=== PATIENT | female | born 1980 | race Caucasian/White ===

== ENCOUNTER 2024-12-12 20:00 | Outpatient (OUT) | payer OTHER, SELFPAY ==
--- OUTSIDE RECORDS SUMMARY | 2024-05-25 10:14 | XMS_ITS | Continuity of Care Document ---
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 Name Role Phone Win Rae MD Unavailable Unavailable Allergies, Adverse Reactions, Alerts Substance Reaction Status Criticality trimethoprim Rash Active No Information sulfamethoxazole Rash Active No Informat ion Penicillins Unknown Active No Information Medications Medication Instructions Dosage Effective Dates (start - stop) Status Comments 1.5/30 (28) 1.5 mg-30 mcg (21)/75 mg (7) tablet take 1 tablet by oral route every day 1.00 tablet - Active Problems Condition Type Effective Dates (start - stop) Clini lashanda Status Comments No Known Problems Procedures Procedure Date Cytopath Cerv/vag Thin Prep; R Preven Meds E&m Estab Pt; 025 Mammo Add Bilateral Tomosynthesis 3D Apr Mammo Screening Bilateral Cytopath Cerv/vag Thin Prep; R Preven Meds E&m Estab Pt; 024 Mammo Add Bilateral Tomosynthesis 3D Apr Mammo Screening Bilateral Ua Dip Stik/tablt;wo Micro Non 23 Estab - Low (20-29) Mammo Add Bilateral Tomosynthesis 3D Apr Mammo Screening Bilateral Cytopath Cerv/vag Thin Prep; R 23 Preven Meds E&m Estab Pt; 40-64 023 Cytopath Cerv/vag Thin Prep; R 21 Preven Meds E&m Estab Pt; 021 Immuniz Admin; 1/combo Vacc/to 21 FLU VAC 4 (Single Dose) NO PRSV 4 ANGUS 3 YRS+ Estab - Moderate (30-39) Echo Transvaginal Offic/outpt E&m Estab Mod-hi 2 20 Cytopath Cerv/vag Thin Prep; R 20 Preven Meds E&m Estab Pt; 020 Echo Transvaginal Offic/outpt E&m Estab Mod-hi 2 19 Cytopath Cerv/vag Thin Prep; R 19 Preven Meds E&m Estab Pt; 019 Offic/outpt E&m Estab Low-mod 9 Cytopath Cerv/vag Thin Prep; R 18 Preven Meds E&m Estab Pt; 018 Cytopath Cerv/vag Thin Prep; R 17 Preven Meds E&m Estab Pt; 017 Offic/outpt E&m Estab Low-mod 6 Offic/outpt E&m Estab Low-mod 6 Cytopath Cerv/vag Thin Prep; R 16 Remov Intrauterine Device Preven Meds E&m Estab Pt; [address]; Hg/pltlt Ct Auto/compl Routine Venipunct/finger/heel 5 Echo Transvaginal Offic/outpt E&m Estab Low-mod 5 KGA Agt-dna/rna; Chlamydia Trach-a [facility] Agt-dna/rna; Neisser Gonorrhea Cytopath Cerv/vag Thin Prep; R 15 Preven Meds E&m Estab Pt; 015 Preven Meds E&m Estab Pt; 014 Cytopath Cerv/vag Thin Prep; R 14 Echo Transvaginal KGA Agt-dna/rna; Chlamydia Trach-a [facility] Agt-dna/rna; Neisser Gonorrhea Echo Transvaginal Offic/outpt E&m Estab Low-mod 3 Cytopath Cerv/vag Thin Prep; R 13 Preven Meds E&m Estab Pt; 013 Cytopath Cerv/vag Thin Prep; R 12 Preven Meds E&m Estab Pt; 012 Offic/outpt E&m Estab Low-mod 2 Offic/outpt E&m Estab Low-mod 2 Offic/outpt E&m Estab Low-mod 1 Void Encounter Offic/outpt E&m Estab Mod-hi 2 11 Echo Transvaginal Offic/outpt E&m Estab Low-mod 1 Offic/outpt E&m Estab Low-mod 1 KGA Cult Bacterial Definit; Other Offic/outpt E&m Estab Low-mod 1 Offic/outpt E&m Estab Low-mod 1 Echo Transvaginal Smear Prim W/intrpt; Wet Mnt W 11 Insrt Intrauterine Device Levonorgestrel Iu Contracept Insrt Intrauterine Device Urin Pg Test Visual Color Comp 11 Routine Ob Care Incl Vag Del C Section, No NICU Admission, No Induction, No Pp Care Only (separt Proc) Cytopath Cerv/vag Thin Prep; R 11 KGA Cult Bacterial Urin; Dennis [place] [facility] Sensit Antibiot; Disk Method/p Offic/outpt E&m Estab Low-mod 1 Non-stress Test Offic/outpt E&m Estab 5 Min Regular Ob Visit Regular Ob Visit Regular Ob Visit Rtu Pg Utrus W/imag Doc Transv 11 KGA Cult Bact Screen Only Sngl Org Regular Ob Visit Kga Transferase; Aspartate Amino 2010 Kga Transferase; Alanine Amino 11 Kga Urea Nitro; Dennis [facility] Creatinine; Bld [facility] Uric Acid; Bld KGA Prothrombin Time KGA P T T; Plasma/whole Bld [facility] Bld Ct; Hg/pltlt Ct Auto/compl Routine Venipunct/finger/heel 1 Non-stress Test Offic/outpt E&m Estab 5 Min Regular Ob Visit Regular Ob Visit Regular Ob Visit Regular Ob Visit [facility] Bld Ct; Hg/pltlt Ct Auto/compl Kga Glu; Post Glu Dose Routine Venipunct/finger/heel 1 Offic/outpt E&m Estab 5 Min Echo Pg Uterus B-scan; Complt 0 Kga Alpha-fetoprotein; Serum Routine Venipunct/finger/heel 0 Regular Ob Visit Flu Vir Vacc-split 3 Yr & > Im 10 Immuniz Admin; 1/combo Vacc/to 10 Regular Ob Visit Patient Responsibility Patient Responsibility Ag-nucleic Acid Mx Org; Dir Pr 10 Rtu Pg Utrus W/imag Doc Transv 10 Estab Pt Ob Visit25 Minutes Kga Thyroid Stim Hormone KGA Cult Bacterial Urin; Dennis [place] Routine Venipunct/finger/heel 0 Offic/outpt E&m Estab 5 Min Kga Ob Panel KGA Antib; Hiv-1 Kga Gonadotropin Chorionic; Dennis 2009 Routine Venipunct/finger/heel 0 Rtu Pg Utrus W/imag Doc Transv 10 Offic/outpt E&m Estab Low-mod 0 Echo Transvaginal Tx Missed Ab Compl Surg; 1st T 10 Readmitted Within 72 Hours For Same Prob celina, No DVT Protocol Compliance, Yes Antibiotic Protocol, Yes Rtu Pg Utrus W/imag Doc Transv 10 Kga Gonadotropin Chorionic; Dennis 2009 Routine Venipunct/finger/heel 0 Kga Gonadotropin Chorionic; Dennis 2009 Routine Venipunct/finger/heel 0 Postop F/u Visit Incld Global 0 Postoperative Infection, No Lap Surg; W/fulg/excis Les-ova 10 Offic/outpt E&m Estab Mod-hi 2 10 Colposcopy; W/bx-cerv &/or End 10 Offic/outpt E&m Estab Mod-hi 2 10 Offic/outpt E&m Estab Mod-hi 2 10 Echo Transvaginal Offic/outpt E&m Estab Low-mod 0 Offic/outpt E&m Estab Mod-hi 2 10 Routine Venipunct/finger/heel 0 Kga Gonadotropin Chorionic; Dennis 2009 Kga Gonadotropin Chorionic; Qual 2009 Routine Venipunct/finger/heel 0 Preven Meds E&m Estab Pt; 18-3 09 Cytopath Cerv/vag Thin Prep; R 09 Preven Meds E&m Estab Pt; 18-3 08 Cytopath Cerv/vag Thin Prep; R 08 Ag-nucleic Acid Mx Org; Dir Pr 08 Offic/outpt E&m Estab Low-mod 8 Smear Prim W/intrpt; Wet Mnt W 08 KGA Cult Bacterial Definit; Other Offic/outpt E&m Estab Low-mod 8 Ph Body Fluid Ex Bld Smear Prim W/intrpt; Wet Mnt W 08 KGA Cult Bacterial Definit; Other Offic/outpt E&m Estab Low-mod 8 Ph Body Fluid Ex Bld Smear Prim W/intrpt; Wet Mnt W 08 Offic/outpt E&m Estab Low-mod 8 Ph Body Fluid Ex Bld Smear Prim W/intrpt; Wet Mnt W 08 Urin Pg Test Visual Color Comp 08 Preven Meds E&m Estab Pt; 18-3 07 Preven Meds E&m Estab Pt; 18-3 07 Cytopath Cerv/vag Thin Prep; R 07 Pp Care Only (separt Proc) Routine Ob Care Incl Vag Del Regular Ob Visit Rho D Ig Human 1 Dose Pkg rtu pg utrus fetl gómez ab rtu pg utrus 1 tri abd; cytopath cerv/vag thin pr rtu pg utrus 1 tri abd; Preven Med Counsl (sep Pr Advance Directives Directive Yes / No Effective Date File Name No Information Encounters Encounter Description Practice Location Reason(s) For Visit Diagnoses Date Provider Providers Copied on Encounter [facility], [address], [place], [place], [id number], [place] tel:[phone] BARRY Christianson No Information 5 Kyra Walden. [address] [place] [address], [id number], [place]. tel:[phone] Preven Meds E&m Estab Pt; 4064 [facility], [address], [place], [place], [id number], [place] tel:[phone] JAKEBelen Quintero [facility] Block [employer]immer annual exam (chief complaint) Encounter for gynecological examination (general) (routine) without abnormal findingsOral contraceptive pill surveillanceF riable cervix 5 Kyra Walden. [address] [place] [address], [id number], [place]. tel:[phone] [facility], [address], [place], [place], [id number], [place] tel:[phone] [facility] - UA No Information 5 Kyra Walden. [address] [place] [address], [id number], [place]. tel:[phone] Preven Meds E&m Estab Pt; 40 [facility], [address], [place], [place], [id number], [place] tel:[phone] JAKEBelen Quintero [facility] Block [employer] annual exam (chief complaint) Encounter for gynecological examination (general) (routine) without abnormal findingsOral contraceptive pill surveillance 4 Kyra Walden. [address] [place] [address], [id number], [place]. tel:[phone] [facility], [address], [place], [place], [id number], [place] tel:[phone] [facility] - UA No Information 4 Kyra Walden. [address] [place] [address], [id number], [place]. tel:[phone] Estab - Low (20-29) [facility], [address], [place], [place], [id number], [place] tel:[phone] BARRY Quintero [facility] Block [employer] urinary symptoms (chief complaint) Frequency of micturitionDy suria - 3 Preetisuniljuliana GARCIA Lorena. [address] [place] [address], [id number], . tel:[phone] [facility], [address] [facility], [place], [place], [id number], [place] tel:[phone] [facility] - UA No Information 3 Kyra Walden. [address] [place] [address], [id number], [place]. tel:[phone] Preven Meds E&m Estab Pt; 40-64 [facility], [address] [address], [place], [place], [id number], tel:[phone] BARRY Quintero [facility] Block [employer]immer annual exam (chief complaint) Encounter for gynecological examination (general) (routine) without abnormal findingsOral contraceptive pill surveillance 3 Kyra Walden. [address] [place] [address], [id number], [place]. tel:[phone] [facility] Pt; 18-39 [facility], [address] [facility], [place], [place], [id number], [place] tel:[phone] BARRY Quintero [facility] [employer] annual exam (chief complaint)ab normal bleeding (chief complaint) Encounter for gynecological examination (general) (routine) without abnormal findingsOral contraceptive pill surveillanceP CB (post coital bleeding) 1 Kyra Walden. [address] [place] [address], [id number], [place]. tel:[phone] [facility], [address] [facility], [place], [place], [id number], [place] tel:[phone] [facility] No Information 1 Melody Greene. [address] [place] [address], [id number], . tel:[phone] [facility], [address], [place], [place], [id number], [place] tel:[phone] JAKEBelen Duran Quintero [facility] Block [employer] No Information 1 Melody Greene. [address] [place] [address], [id number], [place]. tel:[phone] Estab - Moderate (30-39) [facility], [address] [facility], [place], [place], [id number], [place] tel:[phone] BARRY Quintero [facility] [employer] Abdominal pain (chief complaint)pe lvic pain (chief complaint) DysmenorrheaP elvic and perineal painUnspecifi ed abdominal pain 1 Kyra Walden. [address] [place] [address], [id number], [place]. tel:[phone] Offic/outpt E&m Estab Mod-hi 2 [facility], [address] [facility], [place], [place], [id number], [place] tel:[phone] BARRY Quintero [facility] [employer] Abdominal pain (chief complaint) Abnormal uterine bleeding (AUB)Unspecif ied abdominal painDysmenorr hea 0 Kyra Walden. [address] [place] [address], [id number], [place]. tel:[phone] Preven Meds E&m Estab Pt; 18-39 [facility], [address] [facility], [place], [place], [id number], [place] tel:[phone] BARRY Quintero [facility] [employer] annual exam (chief complaint)ab normal bleeding (chief complaint) Encounter for gynecological examination (general) (routine) without abnormal findingsAbnor mal uterine bleeding (AUB)Unspecif ied abdominal painOral contraceptive pill surveillance 0 Kyra Walden. [address] [place] [address], [id number], [place]. tel:[phone] Offic/outpt E&m Estab Mod-hi 2 [facility], [address], [place], [place], [id number], [place] tel:[phone] JAKEBelen Quintero [facility] [employer] Abdominal pain (chief complaint)ab normal bleeding (chief complaint) Unspecified abdominal painAbnormal uterine bleeding (AUB) 9 Kyra Walden. [facility] [place], [place], [id number], [place]. 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 [address] [place] [address], [id number], [place]. tel:[phone] Preven Meds E&m Estab Pt; [facility], [address], [place], [place], [id number], [place] tel:[phone] BARRY Duran Quintero [facility] Block Trimmer annual exam (chief complaint) Encntr for willow worker exam (general) (routine) w/o abn findingsOral contraceptive pill surveillance 0 8 Kyra Walden. [facility] [place], [place], [id number], [place]. tel:[phone] Preven Meds E&m Estab Pt; [facility], [address], [place], [place], [id number], tel:[phone] JAKEBelen Quintero [facility] Block [employer] annual exam (chief complaint)ab normal bleeding (chief complaint) Encntr for willow worker exam (general) (routine) w/o abn findingsOral contraceptive pill surveillanceA bnormal uterine bleeding (AUB) 7 Kyra Walden. [address] [place], [place], [id number], [place]. tel:[phone] Offic/outpt E&m Estab Low-mod [facility], [address] [facility], [place], [place], [address] [place] [address], [place] tel:[phone] JA[facility]Belen [facility] [employer] Abdominal pain (chief complaint)Ab normal bleeding (chief complaint) Unspecified abdominal pain 6 Kyra Walden. [address] [place], [place], [address] [place] [address], [place]. tel:[phone] Preven Meds E&m Estab Pt; 18-39 [facility], [address] [place] [address], [place], [place], [address] [place] [address], [place] tel:[phone] BARRY Dominguez Block [employer] annual exam (chief complaint)IU D removal (chief complaint)co ntraception (chief complaint) Encntr for willow worker exam (general) (routine) w/o abn findingsEncou nter for removal of intrauterine contraceptive deviceFamily history of malignant neoplasm of breast 6 Kyra Walden. [facility] [place], [place], [address] [place] [address], [place]. tel:[phone] [facility], [address], [place], [place], [id number], [place] tel:[phone] BARRY Dominguez [employer] No Information 5 Kyra Walden. [address] [place], [place], [id number], [place]. tel:[phone] Offic/outpt E&m Estab Low-mod [facility], [address], [place], [place], [id number], [place] tel:[phone] BARRY Dominguez [employer] Abdominal pain (chief complaint) Abdominal pain 5 Kyra Walden. [address] [place], [place], [id number], [place]. tel:[phone] [facility], [address] [facility], [place], [place], [id number], [place] tel:[phone] BARRY Quintero [facility] Block [employer] No Information 5 Kyra Walden. [address] [place] [address], [address] [place] [address], [place]. 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 [address] [place] [address], [address] [place] [address], [place]. tel:[phone] [facility] Meds E&m Estab Pt; 18-39 [facility], [address] [facility], [place], [place], [id number], [place] tel:[phone] BARRY Quintero [facility] Block Trimmer annual exam (chief complaint) ROUTINE AUTO MECHANIC APPRENTICE EXAMINATIONMa lpositioned IUD 4 Kyra Walden. [address] [place] [address], [address] [place] [address], [place]. tel:[phone] [facility] Clinical [facility], [address] [facility], [place], [place], [id number], [place] tel:[phone] BARRY Dominguez [facility] No Information 4 Kyra Walden. [address] [place] [address], [address] [place] [address], [place]. tel:[phone] [facility], [address], [place], [place], [id number], [place] tel:[phone] [facility] No Information 3 Kyra Walden. [address] [place] [address], [address] [place] [address], [place]. tel:[phone] Offic/outpt E&m Estab Low-mod [facility], [address] [facility], [place], [place], [id number], [place] tel:[phone] JAKEBelen Quintero [facility] [employer] Pelvic Pain (chief complaint)Ch jonnathan IUD placement (chief complaint)ul trasound (chief complaint) Pelvic pain in female 3 Kyra Walden. [address] [place] [address], [id number], [place]. tel:[phone] Preven Meds E&m Estab Pt; [facility], [address], [place], [place], [id number], [place] tel:[phone] JAKEBelen [facility] [employer] annual visit (chief complaint)ab dominal pain (chief complaint) Pelvic Pain 3 Kyra Walden. [address] [place] [address], [id number], [place]. tel:[phone] Preven Meds E&m Estab Pt; [facility], [address], [place], [place], [id number], [place] tel:[phone] [facility]Y 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 [address] [place] [address], [id number], [place]. tel:[phone] Offic/outpt E&m Estab Low-mod [facility], [address], [place], [place], [id number], [place] tel:[phone] BARRY Dominguez [employer] pain (chief complaint) IUD, Check, Reinsert, RemovalPelvic pain 2 Kyra Walden. [address] [place] [address], [id number], [place]. tel:[phone] Offic/outpt E&m Estab Low-mod [facility], [address], [place], [place], [id number], [place] tel:[phone] BARRY Dominguez [facility] abdominal pain (chief complaint) Abdominal Pain LLQ Dec- 1 Kyra Walden. [address] [place] [address], [address] [place] [address], . tel:[phone] Offic/outpt E&m Estab Mod-hi 2 [facility], [address], [place], [place], [id number], [place] tel:[phone] JAKEBelen Quintero [facility] Block [employer]immer No Information 1 Kyra Walden. [address] [place] [address], [address] [place] [address], . tel:[phone] [facility], [address], [place], [place], [id number], [place] tel:[phone] JAKEBelen [facility] No Information 1 Kyra Walden. [address] [place] [address], [address] [place] [address], . tel:[phone] Offic/outpt E&m Estab Low-mod [facility], [address], [place], [place], [id number], [place] tel:[phone] BARRY Duran Quintero [facility] Block [employer] IUD check (chief complaint) IUD, Check, Reinsert, Removal 1 Kyra Walden. [address] [place] [address], [address] [place] [address], . tel:[phone] [facility], [address], [place], [place], [id number], [place] tel:[phone] KGBelen [place] No Information 1 Kyra Walden. [address] [place] [address], [address] [place] [address], [place]. tel:[phone] Offic/outpt E&m Estab Low-mod [facility], [address], [place], [place], [id number], [place] tel:[phone] KGBelen [place] vaginal discharge (chief complaint)ab dominal pain (chief complaint) Abdominal Pain LLQPruritus Of Genital OrgansCyst Follicular 1 Kyra Walden. [address] [place] [address], [address] [place] [address], [place]. tel:[phone] [facility] Clinical [facility], [address] [facility], [place], [place], [address] [place] [address], [place] tel:[phone] JAKEBelen Dominguez [employer] IUD insertion (chief complaint) INSERTION OF IUDINSERTION OF IUD 1 Kyra Walden. [address] [place] [address], [address] [place] [address], . tel:[phone] [facility], [address] [facility], [place], [place], [address] [place] [address], [place] tel:[phone] BARRY Duran Dominguez [employer] No Information 1 Martha Tran . [address] [place] [address], [address] [place] [address], . tel:[phone] [facility] Clinical [facility], [address] [address], [place], [place], [address] [place] [address], [place] tel:[phone] BARRY Duran Dominguez [employer] Post Check 1 Kyra Walden. [address] [place] [address], [address] [place] [address], [place]. tel:[phone] [facility], [address] [address], [place], [place], [address] [place] [address], [place] tel:[phone] BARRY Duran [place] Block [employer] No Information 1 Kyra Walden. [address] [place] [address], [address] [place] [address], [place]. tel:[phone] Offic/outpt E&m Estab Low-mod [facility], [address] [facility], [place], [place], [address] [place] [address], [place] tel:[phone] JAKEBelen Dominguez [employer] pelvic pain (chief complaint) No Information 1 Kyra Walden. [address] [place] [address], [address] [place] [address], [place]. tel:[phone] Offic/outpt E&m Estab 5 Min [facility], [address] [address], [place], [place], [id number], [place] tel:[phone] [facility] [place] [facility] No Information 1 Krya Walden. [address] [place] [address], [address] [place] [address], [place]. tel:[phone] [facility], [address] [facility], [place], [place], [id number], [place] tel:[phone] [place] Block Trimmer No Information 1 Kyra Walden. [address] [place] [address], [address] [place] [address], [place]. tel:[phone] [facility], [address] [facility], [place], [place], [id number], [place] tel:[phone] [place] Block Trimmer No Information 1 Kyra Walden. [address] [place] [address], [address] [place] [address], [place]. tel:[phone] [facility], [address] [facility], [place], [place], [id number], [place] tel:[phone] [place] Block [employer]immer No Information 1 Kyra Walden. [address] [place] [address], [address] [place] [address], [place]. tel:[phone] [facility], [address] [address], [place], [place], [id number], [place] tel:[phone] [facility] [place] [facility] No Information 1 Kyra Walden. [address] [place] [address], [address] [place] [address], [place]. tel:[phone] [facility], [address] [facility], [place], [place], [id number], [place] tel:[phone] [place] Block [employer]immer No Information 1 Kyra Walden. [address] [place] [address], [address] [place] [address], [place]. tel:[phone] [facility], [address], [place], [place], [id number], [place] tel:[phone] BARRY Duran Dominguez [employer] Group B Strep Screening 1 Kyra Walden. [address] [place] [address], [address] [place] [address], . tel:[phone] [facility], [address], [place], [place], [id number], [place] tel:[phone] BARRY [facility] Block Trimmer No Information 1 Kyra Walden. [address] [place] [address], [address] [place] [address], . tel:[phone] [facility], [address], [place], [place], [id number], [place] tel:[phone] BARRY Duran Dominguez Block Trimmer No Information 1 Kyra Walden. [address] [place] [address], [address] [place] [address], . tel:[phone] Offic/outpt E&m Estab 5 Min [facility], [address] [facility], [place], [place], [id number], [place] tel:[phone] BARRY Dominguez [facility] Headache 1 Kyra Walden. [address] [place] [address], [address] [place] [address], . tel:[phone] [facility], [address] [facility], [place], [place], [id number], [place] tel:[phone] BARRY Garzon Ingrid jojo Block Trimmer No Information 1 Kyra Walden. [address] [place] [address], [address] [place] [address], . tel:[phone] [facility], [address], [place], [place], [id number], [place] tel:[phone] JAKEBelen Dominguez Block Trimmer No Information 1 Kyra Walden. [address] [place] [address], [address] [place] [address], . tel:[phone] [facility], [address] [facility], [place], [place], [address] [place] [address], [place] tel:[phone] BARRY [place] Block Trimmer No Information 1 Kyar Walden. [address] [place] [address], [address] [place] [address], . tel:[phone] [facility], [address] [facility], [place], [place], [address] [place] [address], [place] tel:[phone] BARRY [place] Block Trimmer No Information 1 Kyra Walden. [address] [place] [address], [address] [place] [address], . tel:[phone] [facility], [address] [facility], [place], [place], [address] [place] [address], tel:[phone] BARRY [place] Block Trimmer No Information 1 Kyra Walden. [address] [place] [address], [address] [place] [address], . tel:[phone] Offic/outpt E&m Estab 5 Min [facility], [place] [address], [place], [place], [address] [place] [address], tel:[phone] BARRY Dominguez An[facility] No Information 0 Kyra Walden. [address] [place] [address], [address] [place] [address], . tel:[phone] [facility], [address] [facility], [place], [place], [address] [place] [address], [place] tel:[phone] JAKEBelen Dominguez Block Trimmer Diabetes, Gestational Screen 0 Kyra Walden. [address] [place] [address], [address] [place] [address], . tel:[phone] [facility], [address] [facility], [place], [place], [address] [place] [address], [place] tel:[phone] BARRY [place] No Information 0 Kyra Walden. [address] [place] [address], [address] [place] [address], . tel:[phone] [facility], [address] [address], [place], [address] [place] [address], [place] tel:[phone] BARRY Welton No Information 0 Kyra Walden. [address] [place] [address], [address] [place] [address], . tel:[phone] [facility], [address] [address], [place], [address] [place] [address], [place] tel:[phone] BARRY Welton No Information 0 Kyra Walden. [address] [place] [address], [address] [place] [address], . tel:[phone] [facility], [address] [address], [place], [address] [place] [address], [place] tel:[phone] [place] Block Trimmer No Information 0 Kyra Walden. [address] [place] [address], [address] [place] [address], . tel:[phone] [facility], [address] [place] [address], [place], [address] [place] [address], [place] tel:[phone] [place] Block Trimmer No Information 0 Kyra Walden. [address] [place] [address], [address] [place] [address], [place]. tel:[phone] [facility], [address] [place] [address], [place], [address] [place] [address], [place] tel:[phone] [place] Block Trimmer No Information 0 Kyra Walden. [address] [place] [address], [address] [place] [address], [place]. tel:[phone] [facility], [address] [address], [place], [address] [place] [address], [place] tel:[phone] [place] Block Trimmer STD/ Screening 0 Manny Flood. [address] [place] [address], [address] [place] [address], [place]. tel:[phone] [facility], [address] [place] [address], [place], [address] [place] [address], [place] tel:[phone] BARRY Dominguez Antepartum Unit No Information 0 Kyra Walden. [address] [place] [address], [address] [place] [address], [place]. tel:[phone] Estab Pt Ob Visit25 Minutes [facility], [place] [address], [place], [address] [place] [address], [place] tel:[phone] BARRY Dominguez Block Trimmer No Information 0 Kyar Walden. [address] [place] [address], [address] [place] [address], [place]. tel:[phone] [facility], [place] [address], [place], [address] [place] [address], [place] tel:[phone] BARRY Dominguez Block Trimmer No Information 0 Kyra Walden. [address] [place] [address], [address] [place] [address], [place]. tel:[phone] Offic/outpt E&m Estab 5 Min [facility], [address], [address] [place] [address], [place] tel:[phone] BARRY Dominguez Block Trimmer Supervision/ Subsequent PregnancySTD/ ScreeningFati edson In 0 Kyra Walden. [address] [place] [address], [address] [place] [address], [place]. tel:[phone] [facility], [address] [place] [address], [place], [address] [place] [address], [place] tel:[phone] BARRY Dominguez Block Trimmer No Information 0 Kyra Walden. [address] [place] [address], [address] [place] [address], [place]. tel:[phone] [facility], [address], [place], [address] [place] [address], [place] tel:[phone] BARRY [facility] Block Trimmer No Information 0 Kyra Walden. [address] [place] [address], [address] [place] [address], [place]. tel:[phone] [facility], [place] [address], [place], [address] [place] [address], [place] tel:[phone] BARRY Quintero [facility] Block Trimmer abdominal pain (chief complaint) No Information 0 Kyra Walden. [address] [place] [address], [address] [place] [address], [place]. tel:[phone] Offic/outpt E&m Estab Low-mod [facility], [address] [place] [address], [place], [address] [place] [address], [place] tel:[phone] BARRY Quintero [facility] Block Trimmer Pelvic Pain (chief complaint) No Information 0 Kyra Walden. [address] [place] [address], [address] [place] [address], [place]. tel:[phone] [facility], [address] [place] [address], [place], [address] [place] [address], [place] tel:[phone] BARRY Quintero [facility] Block Trimmer No Information 0 Kyra Walden. [address] [place] [address], [address] [place] [address], [place]. tel:[phone] [facility], [address] [place] [address], [place], [address] [place] [address], [place] tel:[phone] Belen [facility] Antepartum Unit No Information 0 Kyra Walden. [address] [place] [address], [address] [place] [address], [place]. tel:[phone] [facility], [address] [place] [address], [place], [address] [place] [address], [place] tel:[phone] BARRY [facility] Block Trimmer No Information 0 Kyra Walden. [address] [place] [address], [address] [place] [address], . tel:[phone] [facility], [address] [facility], [place], [address] [place] [address], [place] tel:[phone] [place] Block Trimmer Amenorrhea August-2 7-201 0 Kyra Walden. [address] [place] [address], [address] [place] [address], [place]. tel:[phone] [facility], [address] [facility], [place], [address] [place] [address], [place] tel:[phone] [place] Block Trimmer Amenorrhea 5201 0 Manny Flood. [address] [place] [address], [address] [place] [address], . tel:[phone] [facility], [address] [address], [place], [address] [place] [address], [place] tel:[phone] [place] Block Trimmer No Information August-1 2-201 0 Kyra Walden. [address] [place] [address], [address] [place] [address], [place]. tel:[phone] [facility], [address] [place] [address], [place], [address] [place] [address], [place] tel:[phone] BARRY [place] Block Trimmer No Information May-0 6-201 0 Kyra Walden. [address] [place] [address], [address] [place] [address], [place]. tel:[phone] Offic/outpt E&m Estab Mod-hi 2 [facility], [address] [place] [address], [place], [address] [place] [address], [place] tel:[phone] [place] Block Trimmer No Information Jul-2 0-201 0 Kyra Walden. [address] [place] [address], [address] [place] [address], [place]. tel:[phone] [facility], [address] [place] [address], [place], [address] [place] [address], [place] tel:[phone] BARRY [facility] Block Trimmer post coital bleeding (chief complaint) No Information 0 Kyra Walden. [facility] [place], [place], [id number], [place]. tel:[phone] Offic/outpt E&m Estab Mod-hi 2 [facility], [address] [facility], [place], [address] [place] [address], [place] tel:[phone] BARRY [facility] Block Trimmer abdominal pain (chief complaint)bl eeding after intercourse (chief complaint) No Information 3 0- 0 Kyra Walden. [facility] [place], [place], [address] [place] [address], [place]. tel:[phone] Offic/outpt E&m Estab Mod-hi 2 [facility], [address] [place] [address], [place], [address] [place] [address], [place] tel:[phone] BARRY Barriosnvrhett Block Trimmer abdominal pain (chief complaint) No Information 0 Kyra Walden. [address] [place] [address], [address] [place] [address], [place]. tel:[phone] [facility], [address] [facility], [place], [address] [place] [address], [place] tel:[phone] JAKEBelen Dominguez Antepartum [facility] No Information 0 Kyra Walden. [address] [place] [address], [address] [place] [address], [place]. tel:[phone] Offic/outpt E&m Estab Low-mod [facility], [address] [facility], [place], [place], [id number], [place] tel:[phone] BARRY [facility] Block Trimmer abdominal pain (chief complaint) No Information 0 Kyra Walden. [address] [place] [address], [address] [place] [address], [place]. tel:[phone] Offic/outpt E&m Estab Mod-hi 2 [facility], [address] [place] [address], [place], [address] [place] [address], [place] tel:[phone] KGBelen Loftoneyad [facility] Block Trimmer bleeding (chief complaint)ab dominal pain (chief complaint) No Information 0 Kyra Walden. [address] [place] [address], [address] [place] [address], [place]. tel:[phone] [facility], [address] [place] [address], [place], [address] [place] [address], [place] tel:[phone] B[facility]Y [facility] Block Trimmer No Information 0 Kyra Walden. [address] [place] [address], [address] [place] [address], [place]. tel:[phone] [facility], [address] [place] [address], [place], [address] [place] [address], [place] tel:[phone] BARRY Duran Rollyeyad [facility] Block Trimmer DUB, Anovulatory Bleed 0 Kyra Walden. [address] [place] [address], [address] [place] [address], [place]. tel:[phone] [facility], [address] [place] [address], [place], [place], [id number], [place] tel:[phone] BARRY Duran Rollyeyad [facility] Block Trimmer Abdominal Pain LLQ 0 Kyra Walden. [address] [place] [address], [address] [place] [address], [place]. tel:[phone] [facility], [address] [place] [address], [place], [address] [place] [address], [place] tel:[phone] BARRY [facility] Block Trimmer Amenorrhea 0 Kyra Walden. [address] [place] [address], [address] [place] [address], [place]. tel:[phone] [facility] E&m Estab Pt; 18-3 [facility], [address], [address] [place] [address], [place] tel:[phone] Belen Quintero [facility] Block Trimmer annual visit (chief complaint) No Information 200 9 Kyra Walden. [address] [place] [address], [address] [place] [address], . tel:[phone] [facility] E&m Estab Pt; 18-3 [facility], [address] [address], [place], [address] [place] [address], tel:[phone] [place] Block Trimmer No Information 8 Kyra Walden. [address] [place] [address], [address] [place] [address], . tel:[phone] [facility], [address] [facility], [place], [address] [place] [address], [place] tel:[phone] [place] Block Trimmer No Information 8 Kyra Walden. [address] [place] [address], [address] [place] [address], . tel:[phone] Offic/outpt E&m Estab Low-mod [facility], [address] [place] [address], [place], [address] [place] [address], tel:[phone] BARRY Quintero [facility] Block Trimmer vaginal discharge (chief complaint) Bacterial Vaginosis/ Nonspecific 8 Kyra Walden. [address] [place] [address], [address] [place] [address], . tel:[phone] [facility], [address] [place] [address], [place], [address] [place] [address], tel:[phone] BARRY Quintero [place] Block Trimmer No Information 8 yKra Walden. [address] [place] [address], [address] [place] [address], . tel:[phone] Offic/outpt E&m Estab Low-mod [facility], [address], [address] [place] [address], tel:[phone] BARRY Garzon [facility] Block Trimmer vaginal discharge (chief complaint) No Information 8 Kyra Walden. [address] [place] [address], [address] [place] [address], . tel:[phone] [facility], [address], [place], [place], [id number], [place] tel:[phone] KGBelen Dominguez Block Trimmer No Information 8 Kyra Walden. [address] [place] [address], [address] [place] [address], [place]. tel:[phone] Offic/outpt E&m Estab Low-mod [facility], [address], [place], [place], [id number], [place] tel:[phone] KGBelen Dominguez Block Trimmer Excessive Discharge (chief complaint) No Information 8 Kyra Walden. [address] [place] [address], [id number], [place]. tel:[phone] Offic/outpt E&m Estab Low-mod [facility], [address], [place], [place], [id number], [place] tel:[phone] BARRY Dominguez Block Trimmer Vaginal Discarge (chief complaint) No Information 8 Kyra Walden. [address] [place] [address], [address] [place] [address], [place]. tel:[phone] [facility] E&m Estab Pt; 18-3 [facility], [address] [facility], [place], [place], [id number], [place] tel:[phone] BARRY Dominguez Block Trimmer annual visit (chief complaint) Breast CA, Family Hx 7 Kyra Walden. [address] [place] [address], [address] [place] [address], [place]. tel:[phone] [facility], [address], [place], [place], [id number], [place] tel:[phone] KGBelen Dominguez Block Trimmer No Information 7 Kyra Walden. [address] [place] [address], [id number], [place]. tel:[phone] [facility], [address] [facility], [place], [place], [id number], [place] tel:[phone] [place] [facility] Block Trimmer No Information 7 Kyra Walden. [address] [place] [address], [address] [place] [address], . tel:[phone] [facility], [address] [facility], [place], [place], [id number], [place] tel:[phone] [facility] Block Trimmer No Information 7 Kyra Walden. [address] [place] [address], [address] [place] [address], . tel:[phone] [facility], [address] [facility], [place], [place], [id number], [place] tel:[phone] [facility] Block Trimmer No Information 7 Kyra Walden. [address] [place] [address], [address] [place] [address], . tel:[phone] [facility], [address] [facility], [place], [place], [id number], [place] tel:[phone] BARRY Quintero [facility] Block Trimmer No Information 6 Kyra Walden. [address] [place] [address], [address] [place] [address], . tel:[phone] [facility], [address] [address], [place], [place], [id number], [place] tel:[phone] BARRY [facility] Block Trimmer No Information 6 Kyra Walden. [address] [place] [address], [address] [place] [address], . tel:[phone] [facility], [address] [facility], [place], [place], [id number], [place] tel:[phone] KGBelen [facility] Block Trimmer No Information 6 Kyra Walden. [address] [place] [address], [address] [place] [address], . tel:[phone] [facility] (sep Pr [facility], [address] [facility], [place], [place], [id number], [place] tel:[phone] BARRY Quintero [facility] Block Trimmer No Information Kyra Walden. [facility] [place], [place], [id number], [place]. tel:[phone] Family History Family Member Type Diagnosis Age At Onset Father Problem (finding) diabetes melli tus in first degree relative Mother Problem (finding) Alive and well Problem (finding) No family history of Ca ncer -ovarian Father Problem (finding) hypertension Problem (finding) No family history of Os teoporosis Paternal aunt Problem (finding) breast cancer Mother Problem (finding) breast tumor removal Problem (finding) No family hist ory of Coronary artery disease Problem (finding) No family history of Ca ncer -colon Immunizations Vaccine Date Status Comments Influenza, injectable, quadrivalent, preservative free, split virus, 3 years and older administered Note: [facility] administer ed ; Source: New Immunization Record Payers Payer name Insurance type Covered green party ID Authoriza tion(s) [facility] [place] [id number] [facility] [place] [id number] Social History Type Description Quantity Date Captured Comments Sex Female Smoking Status No Information Sexual Orientation Straight or heterosexual Mar Chief Complaint And Reason For Visit No Information Reason For Referral Reason For Referral No Information Plan Of Treatment Date Type Action Status Goal Hepatitis C screening. Due o n due Goal H&P. Due on due Goal Unhealthy drug u se screening. Due on due Goal PAP. Due on due Goal Breast exam. Due on due Goal [employer]IC APPRENTICE exam. Due on due Goal PAP. Due on due Goal HPV. Due on due Goal AUT[employer] MECHANIC APPRENTICE exam. Due on due Goal FIT. Due on due Goal CT-Colonography. Due on due Goal FIT-DNA. Due on due Goal Breast exam. Due on due Goal Hepatitis C screening. Due o n due Goal Colonoscopy. Due on due Goal H&P. Due on due Goal Unhealthy drug u se screening. Due on due Goal Colonoscopy. Due on due Goal PAP. Due on due Goal H&P. Due on due Goal AUTO MECHANIC APPRENTICE exam. Due on due Goal HPV. Due on due Goal Hepatitis C screening. Due o n due Goal CT-Colonography. Due on due Goal FIT-DNA. Due on due Goal Breast exam. Due on due Goal FIT. Due on due Goal Unhealthy drug u se screening. Due on due Goal Lipid Panel. Due on due Goal Breast exam. Due on due Goal FIT-DNA. Due on due Goal H&P. Due on due Goal CT-Colonography. Due on due Goal AUTO MECHANIC APPRENTICE exam. Due on due Goal PAP. Due on due Goal HPV. Due on due Goal Colonoscopy. Due on 023 due Goal Hepatitis C screening. Due o n due Goal Unhealthy drug u se screening. Due on due Goal FIT. Due on due Goal PAP. Due on due Goal H&P. Due on due Goal Breast exam. Due on due Goal Mammogram. Due on 8 due Goal HPV. Due on due Goal AUTO MECHANIC APPRENTICE exam. Due on due Goal HPV. Due on due Goal AUTO MECHANIC APPRENTICE exam. Due on due Goal H&P. Due on due Goal Breast exam. Due on due Goal PAP. Due on due Goal Mammogram. Due on 8 due Goal Mammogram. Due on 8 due Goal PAP. Due on due Goal H&P. Due on due Goal HPV. Due on due Goal Breast exam. Due on due Goal AUTO MECHANIC APPRENTICE exam. Due on due Goal H&P. Due on due Goal Breast exam. Due on due Goal HPV. Due on due Goal AUTO MECHANIC APPRENTICE exam. Due on due Goal PAP. Due on due Goal Mammogram. Due on 8 due Goal PAP. Due on due Goal Mammogram. Due on due Goal AUTO MECHANIC APPRENTICE exam. Due on due Goal Breast exam. Due on due Goal HPV. Due on due Goal H&P. Due on due Goal H&P. Due on due Goal PAP. Due on due Goal AUTO MECHANIC APPRENTICE exam. Due on due Goal Breast exam. Due on due Goal Mammogram. Due on due Goal PAP. Due on due Goal H&P. Due on due Goal Mammogram. Due on due Goal Breast exam. Due on due Goal AUTO MECHANIC APPRENTICE exam. Due on due Goal Breast exam. Due on due Goal AUTO MECHANIC APPRENTICE exam. Due on due Goal PAP. Due on due Goal Mammogram. Due on 8 due Goal H&P. Due on due Goal H&P. Due on due Goal Breast exam. Due on due Goal Breast exam. Due on due Goal H&P. Due on due Goal Breast exam. Due on due Goal H&P. Due on due Goal Breast exam. Due on 015 due Goal Breast exam. Due on 015 due Goal H&P. Due on due Goal TD Vaccine. Due on 14 due Goal Breast exam. Due on 014 due Goal H&P. Due on due Goal AUTO MECHANIC APPRENTICE exam. Due on due Goal H&P. Due on due Goal AUTO MECHANIC APPRENTICE exam. Due on due Goal TD Vaccine. Due on 14 due Goal Breast exam. Due on 014 due Goal Breast exam. Due on 011 due Goal AUTO MECHANIC APPRENTICE exam. Due on due Goal TD Vaccine. Due on 11 due Goal H&P. Due on due Appointment Roge Villalta BOOKED Appointment Roge Villalta BOOKED Future Order: Lab Order CBC ([id number]), Orde red on: Ordered Future Order: Lab Order Urine Cu lture ([id number]), Ordered on: Ordered Future Order: Lab Order HCG (B-H CG) Serum Qualitative ([id number]), Appointment on: Ordered History Of Present Illness Encounter Date Complaint History Of Prese nt Illness annual exam The patient has no complaints. She is having regular periods and wishes to renew her OCP annual exam The patient has no complaints. She is having regular periods and wishes to renew her OCP urinary symptoms Location is per ineal. The patient describes it as burning. Denies aggravating factors. Relieving factors include analgesics. Additional information: no history of UTIs, sexually active. Comments: Pt pre sents with c/o urinary frequency and burning at end of void.Onset x 5 days. Started OTC AZO with relief of sxs.No fever, no mid back pain and no hematuria. annual exam The patient has no complaints. She is having regular periods and wishes to renew her OCP annual exam abnormal bleeding The problem is chronic. Context: pre-menopausal. Symptom is aggravated by intercourse. Pertinent negatives include constipation, diarrhea, dyspnea, fatigue, headache and nausea. 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 pelvic pain The patient's sy mptoms have been moderate, are worse and are constant. Presently,the patient is experiencing pain described as crampy, located in the uterus and radiating to the back. This is not the first episode. The patient is premenopausal. Last menstrual period was 04/16/2020. The patient has a history of dyspareunia. The patient does not have a history of endometriosis, ovarian cyst or tubal ligation. The patient's symptoms are aggravated by intercourse and menses. The patient's symptoms are not relieved by anything.The patient denies any abdominal mass, bloating, constipation, diarrhea, nausea or vomiting. Additional information: DESPITE BEING ON THE PAIN HER CRAMPING AND PAIN HAVE NOT IMPROVED. SHE DOES HAVE OCCASIONAL PAIN WITH IC. Dysmenorrhea Abdominal pain Duration of symp toms: 3 Months. Presenting/Initial symptoms include abdominal pain, pelvic pain. Location of pain: diffuse, pelvis. The pain radiates to the back and is dull. Context: no pattern noted. Associated symptoms include abdominal pain. Pertinent negatives include ascites, bloating and dysuria. Additional information: STARTED THE PILL ABOUT ONE MONTH AGO BUT STILL EXPERIENCING CRAMPS AND IRREGULAR BLEEDING. JUST FOUND OUT HER THYROID IS ABNORMAL AND GETTING ADDITIONAL BLOOD WORK DONE AND HAS FOLLOW UP April. annual exam abnormal bleeding The patient de scribes it as serous. Frequency: intermittent. The problem is chronic. Context: pre-menopausal. Denies aggravating factors. Denies relieving factors. Associated symptoms include abdominal pain and cramps. Pertinent negatives include constipation, diarrhea, dyspnea, fatigue, headache and nausea. Additional information: STILL HAVING MID CYCLE ABDOMINAL CRAMPS AND PAIN MOST MONTHS AND PAST 3 MONTHS HAS HAD BTB MID CYCLE. Abdominal pain Duration of symp toms: 2 Months. Severity of symptoms is moderate. The problem reoccurs. Status of symptoms has not changed. Presenting/Initial symptoms include abdominal pain and distension, bloating, pelvic pain. Location of pain: back, LLQ, RLQ. The pain radiates to the back and is aching, dull, gnawing. Context: no pattern noted, WORSE IN AM. No aggravating factors. Relieving factors include change in position. Associated symptoms include abdominal pain and bloating. Pertinent negatives include ascites, constipation, diarrhea, dysuria, fever and nausea. Additional information: CONTINUES TO HAVE LOWER ABD PAIN RLQ AND LLQ RADIATES TO BACK AND WORSE IN AM BUT GETS SOMEWHAT BETTER DURING THE DAY. abnormal bleeding The patient de scribes it as serous. Frequency: intermittent. Context: pre-menopausal. Associated symptoms include abdominal pain and bloating. Pertinent negatives include constipation, diarrhea and nausea. Additional information: OCCASIONAL BTB ON THE PILL MORE MIDCYCLE. abnormal bleeding (comments) SEE MED TO BE RELATED TO CHANGE IN HER PILL FROM HER INSURANCE Bloating annual exam vaginal discharge/itching Her sy mptoms began 1 Year ago. She states the problem has remained unchanged. The symptoms are reported as being moderate. Presently the patient is experiencing vaginal discharge. The patient is premenopausal. Last menstrual period was 01/22/2019. Relevant factors include contraceptive use but patient denies new partner or recent antibiotics. Her symptoms are not aggravated by antibiotics. Her symptoms are not relieved by anything. She denies fever, dyspareunia or dysuria. Pelvic pain Her symptoms beg an 3 months ago, have been mild, are worse and are constant. Presently, the patient is experiencing pain described as achy, located in the uterus and radiating to the back. This is not the first episode. The patient is premenopausal. Last menstrual period was 01/22/2019. The patient does not have a history of dyspareunia or endometriosis. Her symptoms are not aggravated by anything. Her symptoms are associated with bloating. She denies any constipation, diarrhea, dysuria, fever, hematuria, nausea or vomiting. Additional information: VAGUE DIFFUSE CRAMPY, BLOATING SENSATION LOWER ABDOMEN ACROSS LOWER ABDOMEN. annual exam complains of mid cycle cramping on the pill which lasts for 3-4 days annual exam The patient has no complaints. She is having regular periods and wishes to renew her OCP abnormal bleeding The patient de scribes it as serous. Frequency: irregular. The problem is chronic. Context: pre-menopausal. Associated symptoms include cramps. Pertinent negatives include abdominal pain, constipation, diarrhea, dyspnea, fatigue, headache, nausea and pelvic pain. Additional information: SINCE GOING ON THIS PILL HAS CONTINUED TO HAVE BTB. Abnormal bleeding Abdominal pain Duration of symp toms: 2 Months. Severity of symptoms is mild. The problem reoccurs. Status of symptoms has not changed. Presenting/Initial symptoms include abdominal pain. Location of pain: LLQ, RLQ. The pain is not radiating and is aching, colicky. Context: no pattern noted. No aggravating factors. There are no relieving factors. Associated symptoms include abdominal pain. Pertinent negatives include ascites, bloating, constipation, diarrhea, dysuria, fever and nausea. Additional information: She started the pill in October and went several months without a period then began having some BTB and vague abdominal pain. annual exam She has no compl aints. IUD removal contraception pelvic pain Her symptoms hav e been mild, are unchanged and are intermittent. Presently, the patient is experiencing pain described as crampy, located in the left lower abdomen/pelvis and radiating to the pelvis. This is not the first episode. The patient is premenopausal. Last menstrual period was 09/16/2014. The patient has a history of dyspareunia and endometriosis. Her symptoms are not aggravated by anything. She denies any abdominal mass, bloating, constipation, diarrhea, fever, hematuria, nausea or vomiting. annual exam She presents for her annual. Abdominal pain Duration of symp toms: 2 Months. Severity of symptoms is mild. The problem reoccurs. Status of symptoms has not changed. Presenting/Initial symptoms include abdominal pain, bloating. Location of pain: epigastric. The pain radiates to the lower abdomen and is aching. Context: no pattern noted. No aggravating factors. There are no relieving factors. Associated symptoms include abdominal pain and bloating. Pertinent negatives include constipation, diarrhea, dysuria, fever and dyspareunia. Additional information: vague discomfort for about 2 months-infraumbilical to mid lower left and right-no fever or chills, nausea, vomiting-denies dyspareunai. annual exam (comments) she did h ave episode of irregular bleeding in past month and usually does not with mirena annual exam She has no compl aints. Functional Status Date Functional Assessmen t No Information Instructions Date Instruction Additional Infor andreia Urine c/s sentRx Mac robid 100 mg bid x 7 daysCan continue AZO for another 1-2 daysReviewed s/s kidney infx and s/s worsening bladder infxAnticipate improvement in next 24-48 hoursIf no improvement or sxs worsen need to contact office or tester semiconductor packages [place] notify of culture resultsIf culture negative and sxs persist will need further eval.Incr hydrationRTO prn Related to Dysuria I have discussed BRA C gene testing and provided written information to her Related to Family history of malignant neoplasm of breast I have discussed james ntaining good health through exercise and trying to achieve and maintain good body weight. I also recommended calcium and vitamin D intake. I have encouraged her to return in one year for annual examination. 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
--- OUTSIDE RECORDS SUMMARY | 2024-12-10 16:00 | XMS_ITS | Encounter Summary ---
Author Organization [facility] Address [address] [address] Phone Care Team Providers Care Tool Liaison Name Role Phone Hubbard, Peggy Unavailable Veronica More DDS Unavailable Reason for Visit * Reason Comments Follow-up Encounter Details Date Type Department Care Team (Latest Contact Info) Description 12/10/2024 4:00 PM EDT Office Visit clinical research scientist [address] [place] [address] Roselyn Carter, KAITLIN [address] [place] [address] Postoperative examination (Primary Dx) Social History Tobacco Use Types Packs/Day Years Used Date Smoking Tobacco: Never Passive Smoke Exposure: Past Smokeless Tobacco: Never Alcohol Use Standard Drinks/Week Comments Yes 1 (1 standard drink = 0.6 oz pur e alcohol) once a month Overall Financial Resource Strain (CARDIA) Answe r Date Recorded How hard is it for you to pa y for the very basics like food, housing, medical care, and heating? 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 female who is 3 weeks status post wisdom teeth extraction of teeth 1, 16, 17 complicated with sinus communication of site #16. Patient denies pain since surgery. Has been compliant with Peridex BID, antibiotic course, scheduled pain regimen, and sinus precautions. Denies any sinus communication today. PAST MEDICAL HISTORY: Past Medical History[1] PAST SURGICAL HISTORY: Past Surgical History[2] FAMILY HISTORY: Family History Problem Relation Age of Onset Cancer Mother diagnosed 2016, passed in 2022 Bile duct- cholingiocarcinoma Parkinson Maternal Grandfather Dementia Maternal Grandfather Skin Cancer Maternal Grandmother melanoma Breast Cancer Neg Hx Ovarian Cancer Neg Hx Uterine Cancer Neg Hx Colorectal Cancer Neg Hx SOCIAL HISTORY: Social History Tobacco Use Smoking status: Never Passive exposure: Past Smokeless tobacco: Never Substance Use Topics Alcohol use: Yes Alcohol/week: 1.0 standard drink of alcohol Types: 1 Glasses of wine per week Comment: once a month MEDICATIONS: Current Meds: Current Outpatient Medications Medication Sig Atomoxetine 60 MG capsule Take 1 capsule by mouth. (Patient taking differently: Take 40 mg by mouth.) Berberine Chloride (BERBERINE HCI PO) Take by mouth. chlorhexidine 0.12 % Solution oral solution Swish and spit 15 mL 2 times daily for 7 days. Swish around in the mouth for 30 seconds, then spit out. Chlorhexidine oral rinse should be used after you have brushed and flossed your teeth. Do not eat or drink for several hours after using the oral rinse. escitalopram (Lexapro) 5 MG tablet Take 2 tablets by mouth daily. levothyroxine 75 MCG Tab tablet Take 1 tablet by mouth daily. (Patient taking differently: Take 50 mcg by mouth daily.) ALLERGIES: Allergies[3] PHYSICAL EXAM: Smoking Status Never GENERAL: Patient is well nourished and healthy appearing. EXTRAORAL: no swelling, adenopathy, or asymmetry INTRAORAL: Good oral hygiene. Normal ROM; extraction site #1, 16, 17 are clean and intact without inflammation, discharge and completely covered with epithelium. RADIOGRAPHIC EXAM: - not indicated at this appointment ASSESSMENT AND PLAN: Roge Springer is a 44 y.o. female 3 weeks status post wisdom teeth extraction of teeth 1, 16, 17 complicated with sinus communication of site #16, otherwise healing well without apparent complication. Plan Encourage PO intake. Resume work/usual activities Ok to stop sinus precautions Follow up PRN and advised patient to contact our office if any concerns or other complications arise [1] Past Medical History: Diagnosis Date ADHD Damion's disease [2] Past Surgical History: Procedure Laterality Date TONSILLECTOMY [3] Allergies Allergen Reactions Codeine Rash documented in this encounter Plan of Treatment Not on file documented as of this encounter Procedures Procedure Name Priority Date/Time Associated Diagnosis Comments RE-EVALUATION - POST-OPERATIVE OFFICE VISIT Routine 12/10/2024 4:00 PM EDT Postoperative examination documented in this encounter Visit Diagnoses Diagnosis Postoperative examination- Primary Follow-up examination, following unspecified surgery documented in this encounter Additional Health Concerns Assessment Noted Time PHQ-9 Depression Total Score: 8 04/17/19 25 9:00 AM EST documented as of this encounter Care Teams Tool Liaison Relationship Specialty Start Date End Date Peggy Hubbard [address] [phone] Dental Student 09/26/24 Veronica More DDS [address] [phone] Certified Medical Coder Dentistry 09/26/24 documented as of this encounter
--- OUTSIDE RECORDS SUMMARY | 2024-12-12 20:03 | XMS_ITS | Encounter Summary ---
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[employer] Not on file Not on file Not on file documented as of this encounter Plan of Treatment Not on file documented as of this encounter Procedures Procedure Name Priority Date/Time Associated Diagnosis Comments PROPHYLAXIS - ADULT Routine 09/26/2024 12:00 AM EDT documented in this encounter Visit Diagnoses Diagnosis Dental caries on pit and fissure surface penetrating into dentin- Primary Dental caries pit and fissure documented in this encounter Additional Health Concerns Assessment Noted Time PHQ-9 Depression Total Score: 8 04/17/19 9:00 AM EST documented as of this encounter Care Teams Sheet Hanger Relationship Specialty Start Date End Date Peggy Hubbard [address] [phone] Dental Student 09/26/24 Veronica More DDS [address] [phone] System Support Developer Dentistry 09/26/24 documented as of this encounter
--- OUTSIDE RECORDS SUMMARY | 2024-12-12 20:03 | XMS_ITS | Encounter Summary ---
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
--- OUTSIDE RECORDS SUMMARY | 2024-12-12 20:03 | XMS_ITS | Clinical Summary ---
Author Organization [facility] Address [id number] [address] [place] [address] Care Team Providers Care [place] [employer] Name Role Phone Kiley Meza Primary Care Provid er Allergies Active Allergy Reactions Criticality Noted Date Comments Codeine 11/30/2014 Medications levothyroxine (SYNTHROID, LEVOTHROID) 75 MCG tablet Take 1 tablet (75 mcg total) by mouth in the morning. 04/23/2022 Active metFORMIN (GLUMETZA) 500 MG (MOD) 24 hr tablet Take 1 tablet (500 mg total) by mouth daily with breakfast. Active aspirin 81 mg chewable tablet Chew 1 tablet (81 mg total) and swallow in the morning. 20 tablet 07/12/2022 Active atomoxetine (STRATTERA) 60 mg capsule Take 1 capsule (60 mg total) by mouth in the morning. Active Active Problems No known active problems Family History Medical History Relation Name Comments Atrial fibrillation Mother Relation Name Status Comments Mother Alive Social History Tobacco Use Types Packs/Day Years Used Date Smoking Tobacco: Never Smokeless Tobacco: Never Tobacco Cessation:Counseling Given: Not Answered Alcohol Use Standard Drinks/Week Comments Not Currently 0 (1 standard drink = 0.6 oz pur e alcohol) Childcare Answer Date Recorded Childcare Unknown 09/13/2018 Employment Answer Date Recorded Employment Unknown 09/13/2018 Hunger Screening Answer Date Recorded Within the past 12 months we worried whether our food would run out before we got money to buy more. Never True 10/07/2022 Within the past 12 months th e food we bought just didn't last and we didn't have money to get more. Never True 10/07/2022 Purpose - Life Answer Date Recorded Purpose and direction in life Unknown Comments Unknown Sex and Gender Information Value Date Recorded Sex Assigned at Not on file Legal Sex Female 11:32 AM EDT Gender Identity Not on file Sexual Orientation Not on file Last Filed Vital Signs Vital Sign Reading Time Taken Comments Blood Pressure 144/82 10/07/2022 2:06 PM EDT Pulse 99 10/07/2022 2:06 PM EDT Temperature 37.7 C (99.9 F) 07/12/2022 4:00 PM EDT Respiratory Rate 12 07/12/2022 7:46 PM EDT Oxygen Saturation 99% 10/07/2022 2:06 PM EDT Inhaled Oxygen Concentration - - Weight 99.3 kg (219 lb) 10/07/2022 2:06 PM EDT Height 162.6 cm (5' 4 ) 10/07/2022 2:06 PM EDT Body Mass Index 37.59 10/07/2022 2:06 PM EDT Plan of Treatment Health Maintenance Due Date Last Done Comments Depression Screening 1993 Tobacco Screening 1993 DTaP,Tdap and Td Vaccines (2 - Td or Tdap) 02/21/2017 02/21/2007 Adult BMI Screening 10/08/2023 10/07/2022 Influenza Vaccine 12/03/2024 Pap Smear 06/16/2025 06/16/2022 Medical Devices Not on file Insurance [employer] Care Teams [place] [employer] Relationship Specialty Start Date End Date Kiley Meza APRN-NP [facility] [place] [address] PCP - General Nurse Practitioner 04/28/23
--- OUTSIDE RECORDS SUMMARY | 2024-12-12 20:03 | XMS_ITS | Clinical Summary ---
Author Organization [facility] Address [address] [place] [address] Care Team Providers Care Information Services Vice President Name Role Phone HubbardPeggy downey Unavailable Veronica More DDS Unavailable [phone] Allergies Active Allergy Reactions Criticality Noted Date Comments Codeine Rash 11/30/2014 Medications levothyroxine 75 MCG Tab tablet Take 1 tablet by mouth daily. 30 tablet 5 04/05/2017 11:55 AM EST 8 Active Additional Information Patient taking differently: 50 mcgOral DAILY, Reported on 04/17/2024 Atomoxetine 60 MG capsule Take 1 capsule by mouth. Active Berberine Chloride (BERBERINE HCI PO) Take by mouth. Activ e escitalopram (Lexapro) 5 MG tablet Take 2 tablets by mouth daily. Active chlorhexidine 0.12 % Solution oral solution Swish and spit 15 mL 2 times daily for 7 days. Swish around in the mouth for 30 seconds, then spit out. Chlorhexidine oral rinse should be used after you have brushed and flossed your teeth. Do not eat or drink for several hours after using the oral rinse. 210 mL 5 Active Sodium chloride ([place] Nasal [place]) 0.65 % Solution nasal spray 2 sprays by Nasal route as needed for up to 7 days. 88 mL 5 025 Amoxicillin-cl avulanate 500-125 MG tablet Take 1 tablet by mouth every 8 hours for 7 days. 21 tablet 5 025 Active Problems Problem Noted Date Diagnosed Date Caries 10/22/2024 Encounters Date Type Department Care Team Description 12/10/2024 4:00 PM EDT Office Visit central control room operator [address] [place] [address], [address] [place] [address] Roselyn Caretr DMD Postoperative examination (Primary Dx) 11/21/2024 12:30 PM EDT Office Visit central control room operator [address] [place] [address], [address] [place] [phone] Ezra Cornejo, MANJITS Eliana Rooney DMD Tooth impaction (Primary Dx) 10/22/2024 10:30 AM EDT Office Visit central control room operator [address] [place] [address], [address] [place] [phone] Peggy Hubbard Dental caries (Primary Dx); Tooth impaction 10/16/2024 Orders Only [facility] central control room operator [address] [place] [phone] Yanni Vargas DDS Caries (Primary Dx) 10/12/2024 1:00 PM EDT [facility] [address] [place] [phone] Peggy Hubbard Salvatore P, ESCOBAR [place], [place] Dental caries on pit and fissure surface penetrating into dentin (Primary Dx) 10/12/2024 8:45 AM EDT [facility] [address] [place] [phone] Peggy Hubbard Leonardo, DMD Tooth impaction (Primary Dx); Dental caries on pit and fissure surface penetrating into dentin; Defective dental catholic; Encounter for dental examination 10/12/2024 Documentation Only [facility] [address] [place] [address],[address] [place] [address] Lorenzo Hernandez DMD Tooth impaction (Primary Dx) 10/01/2024 Telephone [facility] [address] [place] [phone] Peggy Hubbard 09/26/2024 Documentation Only [facility] [address] [place] [address] Peggy Hubbard Dental caries on pit and fissure surface penetrating into dentin (Primary Dx) from Last 3 Months Family History Medical History Relation Name Comments Dementia Maternal Grandfather Parkinson Maternal Grandfather Skin Cancer Maternal Grandmother melanom a Cancer Mother diagnosed 2016, passed in 2022 Bile duct- cholingiocarcinoma Breast Cancer Neg Hx Colorectal Cancer Neg Hx Ovarian Cancer Neg Hx Uterine Cancer Neg Hx Relation Name Status Comments Maternal Grandfather Maternal Grandmother Mother Social History Tobacco Use Types Packs/Day Years Used Date Smoking Tobacco: Never Passive Smoke Exposure: Past Smokeless Tobacco: Never Tobacco Cessation:Counseling Given: Not Answered Alcohol Use Standard Drinks/Week Comments Yes 1 [...] Date 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 Not on file Not on file Last Filed Vital Signs Vital Sign Reading Time Taken Comments Blood Pressure 157/103 10/22/2024 11:48 AM EDT Pulse 86 10/22/2024 11:48 AM EDT Temperature 36.8 C (98.2 F) 04/17/2024 9:33 AM EST Respiratory Rate 18 10/22/2024 11:48 AM EDT Oxygen Saturation - - Inhaled Oxygen Concentration - - Weight 104.8 kg (231 lb) 10/22/2024 1:26 PM EDT Height 162.6 cm (5' 4 ) 10/22/2024 1:26 PM EDT Body Mass Index 39.65 10/22/2024 1:26 PM EDT Plan of Treatment Health Maintenance Due Date Last Done Comments HEPATITIS C VIRUS SCREENING 1981 TSH 1981 HIV SCREENING DISCUSSION 1996 HEP B VACCINE (1 of 3 - 19+ 3-dose series) 2000 CERVICAL CANCER SCREENING DISCUSSION 2002 HPV VACCINE (1 - 3-dose SCDM series) 2008 TETANUS 02/21/2017 02/21/2007 LIPID SCREENING 2021 COVID-19 VACCINE ( season) 2024 INFLUENZA VACCINE (#1) 2024 Dental Prophylaxis 03/29/2025 09/26/2024 Dental Oral Exam 04/15/2025 10/12/2024 MAMMOGRAM SCREENING DISCUSSION 04/17/2025 04/17/2024, 03/15/2024, 03/15/2024, Additional history exists TDAP (ADULT) Completed 02/21/2007 PNEUMOCOCCAL VACCINE SERIES Aged Out No longer eligible based on patient's age to complete this topic Procedures Procedure Name Priority Date/Time Associated Diagnosis Comments RE-EVALUATION - POST-OPERATIVE OFFICE VISIT Routine 12/10/2024 4:00 PM EDT Postoperative examination 16 EXTRACTION, ERUPTED TOOTH OR EXPOSED ROOT (ELEVATION AND/OR FORCEPS REMOVAL) Routine 11/21/2024 12:30 PM EDT Tooth impaction 17 EXTRACTION, ERUPTED TOOTH OR EXPOSED ROOT (ELEVATION AND/OR FORCEPS REMOVAL) Routine 11/21/2024 12:30 PM EDT Tooth impaction 1 EXTRACTION, ERUPTED TOOTH OR EXPOSED ROOT (ELEVATION AND/OR FORCEPS REMOVAL) Routine 11/21/2024 12:30 PM EDT Tooth impaction LIMITED ORAL EVALUATION - PROBLEM FOCUSED Routine 10/22/2024 1:15 PM EDT Caries INHALATION OF NITROUS OXIDE/ANALGESIA, ANXIOLYSIS Routine 10/22/2024 10:30 AM EDT Dental caries Tooth impaction 32 EXTRACTION, ERUPTED TOOTH OR EXPOSED ROOT (ELEVATION AND/OR FORCEPS REMOVAL) Routine 10/22/2024 10:30 AM EDT Tooth impaction 15 DO RESIN-BASED COMPOSITE - 2 SURFACES, POSTERIOR Routine 10/12/2024 1:00 PM EDT Dental caries on pit and fissure surface penetrating into dentin COMPREHENSIVE ORAL EVAL - NEW/EST PATIENT Routine 10/12/2024 8:45 AM EDT Encounter for dental examination 19 DO COMPOSITE FILLING Routine 10/12/2024 12:00 AM EDT 18 MO COMPOSITE FILLING Routine 10/12/2024 12:00 AM EDT PROPHYLAXIS - ADULT Routine 09/26/2024 1 2:00 AM EDT MAMMO DIAGNOSTIC WITH DBE BILATERAL Routine 04/17/2024 11:04 AM EST Abnormal finding on breast imaging from Last 3 Months or Most Recently Relevant to Health Maintenance Results * MAMMO DIAGNOSTIC WITH DEB BILATERAL (04/17/2024 11:04 AM EST) Anatomical Region Laterality Modality breast Bilateral Mammography 04/17/2024 12:4 2 PM EST Impressions 04/17/2024 12:46 PM EST IMPRESSION: No mammographic or sonographic evidence of malignancy in either breast. Benign cysts are identified in the right breast in areas of benign fibroglandular tissue artifact within the left breast corresponding to the patient's symptoms and mammographic findings. The outside ultrasound finding at 8:00 on today's exam corresponds to a benign simple cyst. The patient may continue routine annual screening. BI-RADS: 2: Benign Recommendation: Routine mammography. Recommendation Laterality: Bilateral MQSA Facility: [facility], [address] [place] [address], Narrative 04/17/2024 12:46 PM EST EXAM: MAMMO DIAGNOSTIC WITH DEB BILATERAL, US BREAST LIMITED BILATERAL, 04/17/2024 11:04 AM (accession [id number]), 04/17/2024 12:39 PM (accession [id number]) CLINICAL INDICATIONS AND HISTORY: per second opinion. focal pain marked bilaterally as well as patient reported lump in upper central left breas R92.8:Abnormal finding on breast imaging COMPARISON: March 30, 2024, March 15, 2024, December 28, 2022, October 14, 2021, October 01, 2021 MAMMOGRAM TECHNIQUE: 2-D ML, right CC and left spot CC and left spot magnification ML/CC views were obtained of the bilateral breasts. 3-D ML, right CC and left spot CC digital tomosynthesis images were also acquired. Computer aided detection was utilized. MAMMOGRAM FINDINGS: Breast Density: There are scattered areas of fibroglandular density. There are no suspicious findings within the right breast. Ultrasound of the areas seen previously is again performed. Focal asymmetric tissue seen in the superior central left breast middle depth as well as the central lateral left breast posterior depth. Ultrasound was performed. ULTRASOUND TECHNIQUE: Multiple real-time julien-scale images of the bilateral breasts in the right lateral breast involving the region the mammographic findings and areas of pain, and left superior central and lateral axis were performed. Color Doppler was used to assess vascular flow. ULTRASOUND FINDINGS: Corresponding to the mammographic finding in the right breast at 9-10 o'clock zone 3 there is benign cysts and areas of dense normal tissue. Again incidentally noted is the finding on outside ultrasound at the right breast 8:00 zone 3 position. This consists of a benign cyst on today's evaluation measuring 7 mm. No suspicious right breast findings identified. In the superior central left breast there is focal dense fibroglandular tissue accounting for the mammographic findings in this position. There are no suspicious findings however. In the left breast at 3:00 zone 2 there is a benign cyst measuring 10 x 4 x 3 mm. And in the left 3-4 o'clock zone 2 position there is a benign cyst measuring 11 mm. This accounts for the second mammographic finding. In the area of patient's pain there is normal fibroglandular tissue. Procedure Note Estela Arrieta MD - 04/17/2024 EXAM: MAMMO DIAGNOSTIC WITH DEB BILATERAL, US BREAST LIMITED BILATERAL, 04/17/2024 11:04 AM (accession [id number]), 04/17/2024 12:39 PM(accession [id number]) CLINICAL INDICATIONS AND HISTORY: per second opinion. focal pain marked bilaterally as well as patient reported lump in upper central left breas R92.8:Abnormal finding on breast imaging COMPARISON: March 30, 2024, March 15, 2024, December 28, 2022, 2021, October 01, 2021 MAMMOGRAM TECHNIQUE: 2-D ML, right CC and left spot CC and left spot magnification ML/CC viewswere obtained of the bilateral breasts. 3-D ML, right CC and left spot CCdigital tomosynthesis images were also acquired. Computer aided detection was utilized. MAMMOGRAM FINDINGS: Breast Density: There are scattered areas of fibroglandular density. There are no suspicious findings within the right breast. Ultrasound ofthe areas seen previously is again performed. Focal asymmetric tissue seen in the superior central left breast [place] as well as the central lateral left breast posterior depth. Ultrasoundwas performed. ULTRASOUND TECHNIQUE: Multiple real-time julien-scale images of the bilateral breasts in theright lateral breast involving the region the mammographic findings and areasof pain, and left superior central and lateral axis were performed. ColorDoppler was used to assess vascular flow. ULTRASOUND FINDINGS: Corresponding to the mammographic finding in the right breast at 9-10o'clock zone 3 there is benign cysts and areas of dense normal tissue. Again incidentally noted is the finding on outside ultrasound at [facility] breast 8:00 zone 3 position. This consists of a benign cyst on today's evaluation measuring 7 mm. No suspicious right breast findingsidentified. In the superior central left breast there is focal dense fibroglandulartissue accounting for the mammographic findings in this position. There are no suspicious findings however. In the left breast at 3:00 zone 2 there is a benign cyst measuring 10 x 4x 3 mm. And in the left 3-4 o'clock zone 2 position there is a benign cyst measuring 11 mm. This accounts for the second mammographic finding. Inthe area of patient's pain there is normal fibroglandular tissue. IMPRESSION IMPRESSION: No mammographic or sonographic evidence of malignancy in either breast.Benign cysts are identified in the right breast in areas of benignfibroglandular tissue artifact within the left breast corresponding to the patient'ssymptoms and mammographic findings. The outside ultrasound finding at 8:00 ontoday's exam corresponds to a benign simple cyst. The patient may continueroutine annual screening. BI-RADS: 2: Benign Recommendation: Routine mammography. Recommendation Laterality: Bilateral MQSA Facility: [facility], [address] [place] [address], Brinda Champagne John INTERTYPE OPERATOR-STOPBOARD ASSEMBLER BREAST IMAGING Final Re sult from Last 3 Months or Most Recently Relevant to Health Maintenance Insurance [facility] Care Teams Information Services Vice President Relationship Specialty Start Date End Date Peggy Hubbard [address] [phone] Dental Student 09/26/24 Veronica More DDS [address] [phone] [employer] [facility] 09/26/24
--- OUTSIDE RECORDS SUMMARY | 2024-12-12 20:03 | XMS_ITS | Encounter Summary ---
Author Organization [facility] Address [address], [address] [place] [address] Care Team Providers Care Manufacturing Supervisor Name Role Phone Renaldo Cadena DO Primary Care Provider [phone] Reason for Visit * Reason Comments Medication Refill Encounter Details Date Type Department Care Team (Late Contact Info) Description 08/13/2018 Refill [facility]UMETRIC WEIGHER [address] [place] [address] [address] [place] [address] Jennifer Yanes APRN - CNM [address] [place] [address] [address] [place] [address] Medication Refill Social History Tobacco Use Types Packs/Day Years Used Date Smoking Tobacco: Never Smokeless Tobacco: Never Alcohol Use Standard Drinks/Week Comments Yes 0 (1 standard drink = 0.6 oz pur e alcohol) rarely Comments No Sex and Gender Information Value Date Recorded Sex Assigned at Not on file Legal Sex Female 2:55 PM EST Gender Identity Not on file Sexual Orientation Not on file documented as of this encounter Plan of Treatment Upcoming Encounters Date Type Department Care Team (Late Contact Info) Description 07/04/2025 3:45 PM EDT Office Visit [facility] Part of [address] [place] [address] Jennifer Yanes APRN - CN [address] [place] [address] [address] [place] [address] yearly documented as of this encounter Visit Diagnoses Diagnosis Insulin resistance syndrome Dysmetabolic Syndrome X documented in this encounter Care Teams Manufacturing Supervisor Relationship Specialty Start Date End Date Renaldo Cadena DO [address] [facility] [place] [address] PCP - General 05/22/12 documented as of this encounter
--- OUTSIDE RECORDS SUMMARY | 2024-12-12 20:03 | XMS_ITS | Encounter Summary ---
Author Organization [employer] tem Address [id number] [address] [place] [address] Care Team Providers Care Telephone Ad Taker Name Role Phone Kiley Meza APRN-DEWAYNE Primary Care Provid er Encounter Details Date Type Department Care Team (Late st Contact Info) Description 07/[facility]20[facility] [address] [place] [phone] Bekah Torre MD [address] [place] [address] Social History Tobacco Use Types Packs/Day Years Used Date Smoking Tobacco: Never Smokeless Tobacco: Never Alcohol Use Standard Drinks/Week Comments Not Currently 0 (1 standard drink = 0.6 oz pur e alcohol) Childcare Answer Date Recorded Childcare Unknown 09/13/2018 Employment Answer Date Recorded Employment Unknown 09/13/2018 Purpose - Life Answer Date Recorded Purpose and direction in life Unknown Comments Unknown Sex and Gender Information Value Date Recorded Sex Assigned at Not on file Legal Sex Female 11:32 AM EDT Gender Identity Not on file Sexual Orientation Not on file COVID-19 Exposure Response Date Recorded In the last month, have you been in contact with someone who was confirmed or suspected to have Coronavirus / COVID-19? No / Unsure 07/12/2022 3:47 PM EDT documented as of this encounter Miscellaneous Notes * Telephone Encounter - Sheryl Parra - 07/13/2022 7:38 AM EDT This is notification that we have received a referral for the patient. Please reach out to schedulenew patient appointment in your office. Please check the referral tab in appt desk for details and to make sure to assign referral or schedule off of it. Thank you. documented in this encounter Plan of Treatment Not on file documented as of this encounter Visit Diagnoses Not on filedocumented in this encounter Care Teams Telephone Ad Taker Relationship Specialty Start Date End Date Kiley Meza APRN-NP [address] [place] [address] PCP - General Nurse Practitioner 04/28/23 documented as of this encounter
--- OUTSIDE RECORDS SUMMARY | 2024-12-12 20:03 | XMS_ITS | Clinical Summary ---
Author Organization [facility] Address [address], [address] [place] [address] Care Team Providers Care Aligner Typewriter Name Role Phone Surinder Renaldo Perez Primary Care Provider [phone] Allergies Active Allergy Reactions Criticality Noted Date Comments Codeine 11/30/2014 Medications Levothyroxine Sodium (LEVOTHROID PO) Take 50 mcg by mouth daily Active Atomoxetine HCl (STRATTERA PO) Take by mouth A ctive metFORMIN (GLUCOPHAGE) 500 MG tabletIndicatio ns:Insulin resistance Take 1 tablet twice daily 60 tablet 3 7 Active Additional Information Patient not taking.Reported on 07/03/2024 metroNIDAZOLE (METROGEL) 0.75 % vaginal gel Place vaginally nightly for 5 days 40 g 4 Active Berberine Chloride 500 MG CAPS Take by mouth Active atomoxetine (STRATTERA) 40 MG capsule 5 Active Active Problems Patient Care Coordination No te Formatting of this note migh t be different from the original. screening mammo summer 2020 with yearly No known active problems Immunizations Immunization Administration Dates Next Due TDaP, ADACEL (age 10y-64y), BOOSTRIX (age 10y+), IM, 0.5mL 02/21/2007 Family History Medical History Relation Name Comments ADHD Brother Asthma Brother Tuberculosis Father Dementia Maternal Grandfather Cancer Mother bili duct Deep Vein Thrombosis Mother Other Mother liver disease,A fib Other Other No family h/o o varian or breast cancer. Relation Name Status Comments Brother Alive Father Maternal Grandfather Maternal Grandmother Alive Mother Other Other Social History Tobacco Use Types Packs/Day Years Used Date Smoking Tobacco: Never Smokeless Tobacco: Never Tobacco Cessation:Counseling Given: Not Answered Alcohol Use Standard Drinks/Week Comments Not Currently 0 (1 standard drink = 0.6 oz pur e alcohol) rarely [facility] Utilities Answer Date Recorded In the past 12 months has th e electric, gas, oil, or water company threatened to shut off services in your home? No 07/03/2024 Overall Financial Resource Strain (CARDIA) Answe r Date Recorded How hard is it for you to pa y for the very basics like food, housing, medical care, and heating? Not hard at all 06/23/2023 PHQ-2 Answer Date Recorded PHQ-9 Total Score 2 07/03/2024 Hunger Vital Sign Answer Date Recorded Within the past 12 months, y ou worried that your food would run out before you got the money to buy more. Never true 07/04/19 25 Within the past 12 months, t he food you bought just didn't last and you didn't have money to get more. Never true 07/03/2024 PRAPARE - Transportation Answer Date Re corded In the past 12 months, has l ack of transportation kept you from medical appointments or from getting medications? No 04/2024 In the past 12 months, has l ack of transportation kept you from meetings, work, or from getting things needed for daily living? No 07/03/2024 Housing Stability Vital Sign Answer Santosh e Recorded Unable to Pay for Housing in the Last Year Not o n file 06/23/2023 Number of Places Lived in the Last Year Not on f ile 06/23/2023 In the last 12 months, was t here a time when you did not have a steady place to sleep or slept in a group home (including now)? No 06/23/2023 Housing Stability Vital Sign Answer Santosh e Recorded In the last 12 months, was t here a time when you were not able to pay the mortgage or rent on time? No 07/03/2024 In the past 12 months, how m any times have you moved where you were living? 0 07/03/2024 At any time in the past 12 m [facility], were you homeless or living in a group home (including now)? No 07/03/2024 Food Insecurity Answer Date Recorded Within the past 12 months, y ou worried that your food would run out before you got the money to buy more. 1 07/03/2024 Within the past 12 months, t he food you bought just didn't last and you didn't have money to get more. 1 07/03/2024 Comments No Sex and Gender Information Value Date Recorded Sex Assigned at Not on file Legal Sex Female 2:55 PM EST Gender Identity Not on file Sexual Orientation Not on file Last Filed Vital Signs Vital Sign Reading Time Taken Comments Blood Pressure 128/78 07/03/2024 3:21 PM EDT Pulse 99 11/30/2014 10:15 PM EDT Temperature - - Respiratory Rate 18 11/30/2014 10:15 PM EDT Oxygen Saturation 99% 11/30/2014 10:15 PM EDT Inhaled Oxygen Concentration - - Weight 107.5 kg (237 lb) 07/03/2024 3:21 PM EDT Height 154.9 cm (5' 1 ) 07/03/2024 3:21 PM EDT Body Mass Index 44.78 07/03/2024 3:21 PM EDT Plan of Treatment Upcoming Encounters Date Type Department Care Team (Late st Contact Info) Description 07/04/2025 3:45 PM EDT Office Visit [facility] Part of [address] [place] [address] Jennifer Yanes APRN - [place] [address] [place] [address] [address] [place] [address] yearly Health Maintenance Due Date Last Done Comments Varicella vaccine (1 of 2 - 13+ 2-dose series) 1994 Hepatitis C screen 12/06/1999 Hepatitis B vaccine (1 of 3 - 19+ 3-dose series) 2000 Diabetes screen 2016 DTaP/Tdap/Td vaccine (2 - Td or Tdap) 02/21/2017 02/21/2007 Lipids 2021 HPV (without or with Pap) 02/21/2022 02/21/2017 Flu vaccine (#1) 11/02/2024 COVID-19 Vaccine ( season) 2024 Cervical cancer screen 06/16/2025 Pap smear 06/16/2025 06/16/2022, 09/02, 02/21/2017 Depression Screen 07/03/2025 07/03/2024, 07/03/2024 Breast cancer screen 04/17/2026 04/17/2024, 04/12/2024, 03/30/2024, Additional history exists HIV screen Completed 06/03/2007 Depression Monitoring Discontinued 07/03/2024, 025 HPV vaccine (No Doses Required) Completed Hepatitis A vaccine Aged Out No longe r eligible based on patient's age to complete this topic Hib vaccine Aged Out No longer eligi ble based on patient's age to complete this topic Meningococcal (ACWY) vaccine Aged Out No longer eligible based on patient's age to complete this topic Meningococcal B vaccine Aged Out No l onger eligible based on patient's age to complete this topic Pneumococcal 0-49 years Vaccine Aged Out No longer eligible based on patient's age to complete this topic Polio vaccine Aged Out No longer elig ible based on patient's age to complete this topic Procedures Procedure Name Priority Date/Time Associated Diagnosis Comments STEPHANY DEB DIGITAL DIAGNOSTIC UNILATERAL RIGHT Routine 03/30/2024 10:36 AM EST Abnormal screening mammogram [facility] CYTOLOGY Routine 06/16/2022 8:52 AM EDT HUMAN PAPILLOMAVIRUS (HPV) DNA PROBE THIN PREP HIGH RISK Routine 02/21/2017 10:41 AM EST from Last 3 Months or Most Recently Relevant to Health Maintenance Results * (ABNORMAL) STEPHANY DEB DIGITAL DIAGNOSTIC UNILATERAL RIGHT (03/30/2024 10:36 AM EST) Anatomical Region Laterality Modality Breast Right Mammography 03/30/2024 11:0 3 AM EST Impressions 03/30/2024 11:06 AM EST Dense tissue in the lower outer right breast of low suspicion for malignancy thought to correlate with the mammographic findings. Recommend ultrasound-guided biopsy. BIRADS: BIRADS - CATEGORY 4 Suspicious Abnormality. Biopsy should be considered at this time. OVERALL ASSESSMENT - SUSPICIOUS A letter of notification will be sent to the patient regarding the results. My findings and recommendations were discussed with the patient at the time of service. A hotel services sales representative from the radiology department will be contacting your office and assisting the patient in getting appropriate follow-up. Performing Facility: [place] [address] Narrative 03/30/2024 11:06 AM EST EXAMINATION: DIAGNOSTIC DIGITAL RIGHT BREAST MAMMOGRAM WITH TOMOSYNTHESIS; TARGETED ULTRASOUND OF THE RIGHT BREAST; TARGETED ULTRASOUND OF THE LEFT BREAST, 03/30/2024 10:36 am TECHNIQUE: Diagnostic mammography of the right breast was performed with tomosynthesis. 2D standard and 3D tomosynthesis combination imaging performed through the right breast. Computer aided detection was utilized in the interpretation of this exam.; Targeted ultrasound of the right breast was performed.; Views: COMPARISON: March 15, 2024 HISTORY: ORDERING SYSTEM PROVIDED HISTORY: Abnormal screening mammogram TECHNOLOGIST PROVIDED HISTORY: Is the patient ?->No FINDINGS: Mammogram: Right breast is heterogeneously dense which can obscure small masses. Area of concern does not completely disperse with spot compression lower outer right breast. No additional mammographic findings Ultrasound: Thought to correlate with the mammographic findings at the 8 o'clock position 10 cm from the is a area of dense fibrocystic tissue with a 5 mm predominately cystic component somewhat ill defined margins and overall wider than tall. Result [facility] Jennifer Yanes PRODUCTION BROACHING MACHINE OPERATOR - [facility] MAMMOGRAPHY ORDERABLES Final Result * TO[facility] CUTTER SPUR Cytology (06/16/2022 8:52 AM EDT) Cytology Report INTERPRETATION Cervical material, (ThinPrep vial, Imaging-assisted review): Specimen Adequacy: Satisfactory for evaluation. - Endocervical/trans formation zone component present. Descriptive Diagnosis: Negative for intraepithelial lesion or malignancy. Oil Field Rig Builder: HERMELINDO ALLISON(ASCP) Electronically Signed Out 06/24/2022 Source: A: Cervical material, (ThinPrep vial, Imaging-assisted review) Clinical History Z12.4 Encounter for screening for malignant neoplasm of cervix High Risk HPV DNA testing is requested if the diagnosis is ASC-US LMP: 05/28/2022 GYNECOLOGIC CYTOLOGY REPORT Patient Name: ROGE SPR[facility] Rec: [id number] Path Number: [id number] [facility] ANATOMIC PATHOLOGY [address] [place] [id number] [facility] CERVICAL MATERIAL 06/16/2022 8:52 AM EDT 06/17/2022 8:52 AM EDT Jennifer Yanes PRODUCTION BROACHING MACHINE OPERATOR - [facility] PATHOLOGY/CYTOLO GY ORDERABLES Final Result [facility] [address] [place] [address], [facility] [phone] [phone] * Human papillomavirus (HPV) DNA probe thin prep high risk (02/21/2017 10:41 AM EST) HPV SOURCE CERVICAL MATERIAL 02/22/2017 10:42 AM EST [facility] HPV Sample .THIN PREP 02/22/2017 10:42 AM EST [facility] HPV, Genotype 16 Not Detected NOTDET 02/23/2017 2:54 PM EST [facility] HPV, Genotype 18 Not Detected NOTDET 02/23/2017 2:54 PM EST [facility] HPV, High Risk Other Not Detected NOTDET 02/23/2017 2:54 PM EST [facility] HPV, Interpretation 02/23/2017 2:54 PM EST [facility] Comment: This test amplifies and detects DNA of 14 high-risk HPV types associated with cervical cancer and its precursor lesions (HPV types 16,18, 31, 33, 35, 39, 45, 51, 52, 56, 58, 59, 66, and 68). Sensitivity may be affected by specimen collection methods, stage of infection, and the presence of interfering substances. Results should be interpreted in conjunction with other available laboratory and clinical data. A negative high-risk HPV result does not exclude the possibility of future cytologic HSIL or underlying CIN2-3 or cancer. This test is intended for medical purposes only and is not valid for the evaluation of suspected sexual abuse or for other forensic purposes. Performed at [facility] [id number] [phone] 02/21/2017 10:4 1 AM EST 02/22/2017 10:41 AM EST Jennifer Yanes PRODUCTION BROACHING MACHINE OPERATOR - [facility] HEMATOLOGY ORDER MEKHI Final Result [facility] [address] [place] [address], [facility] [phone] [employer] [address], [facility] [phone] from Last 3 Months or Most Recently Relevant to Health Maintenance Insurance [employer] Care Teams Aligner Typewriter Relationship Specialty Start Date End Date Renaldo Cadena DO [address] [place] [address] PCP - General 05/22/12
--- OUTSIDE RECORDS SUMMARY | 2024-12-12 20:03 | XMS_ITS | Clinical Summary ---
Author Organization [facility] Address [address] [place] [address] Care Team Providers Care Stock Sorter Name Role Phone Kiley Meza NP Primary Care Provider Social History Tobacco Use Types Packs/Day Years Used Date Smoking Tobacco: Never Assessed Comments Unknown Sex and Gender Information Value Date Recorded Sex Assigned at Not on file Legal Sex Female 1:37 PM EDT Gender Identity Not on file Sexual Orientation Not on file Plan of Treatment Not on file Insurance [employer] Care Teams Stock Sorter Relationship Specialty Start Date End Date Kiley Meza NP [address] [place] [address] [place] [address] PCP - General Family Medicine 12/09/23
== END 2024-12-12 20:01 | disposition home or self-care (01) ==
PROVIDERS: PCP Nurse Practitioner Family; Visit Provider Nurse Practitioner Family
DX: G47.33 Obstructive sleep apnea (adult) (pediatric) (principal)
CPT/HCPCS: 95810

== ENCOUNTER 2025-01-22 20:02 | Outpatient (OUT) | payer OTHER, SELFPAY ==
--- OUTSIDE RECORDS SUMMARY | 2025-01-22 20:06 | XMS_ITS | Clinical Summary ---
Author Organization [facility] Address [address] [place] [address] Care Team Providers Care Gluing Machine Operator Automatic Name Role Phone Kiley Meza NP Primary Care Provider Social History Tobacco UseTypesPacks/DayYears UsedDateSmoking Tobacco: Never Assessed CommentsUnknownSex and Gender InformationValueDate RecordedSex Assigned at Not on fileLegal QehEpafkb83/06/2024 1:37 PM EDTGender IdentityNot on fileSexual OrientationNot on file Plan of Treatment Not on file Insurance Care Teams Team MemberRelationshipSpecialtyStart DateEnd Date Kiley Meza NP [address] [place] [address] [place] [address] PCP - GeneralFamily Medicine12/09/23
--- OUTSIDE RECORDS SUMMARY | 2025-01-22 20:06 | XMS_ITS | Clinical Summary ---
Author Organization [facility] Address [address] [facility], [address] [place] [address] Care Team Providers Care Rubber Stamp Maker Name Role Phone Surinder Renaldo Perez Primary Care Provider [phone] Allergies Active AllergyReactionsCriticalityNoted IvzqHtalfwlpSzphfvc59/29/2015 Medications MedicationSigDispense QuantityRefillsLast FilledStart DateEnd DateStatus Levothyroxine Sodium (LEVOTHROID PO) Take 50 mcg by mouth dailyActive Atomoxetine HCl (STRATTERA PO) Take by mouthActive metFORMIN (GLUCOPHAGE) 500 MG tablet Indications:Insulin resistanceTake 1 tablet twice daily 60 tablet Active Additional Information Patient not taking.Reported on 07/03/2024 metroNIDAZOLE (METROGEL) 0.75 % vaginal gel Place vaginally nightly for 5 days 40 g 4Active Berberine Chloride 500 MG CAPS Take by mouthActive atomoxetine (STRATTERA) 40 MG capsule 5Active Active Problems Patient Care Coordination No te Formatting of this note migh t be different from the original. screening mammo summer 2020 with yearly No known active problems Immunizations ImmunizationAdministration DatesNext DueTDaP, ADACEL (age 10y-64y), BOOSTRIX (age 10y+), IM, 0.5mL02/21/2007 Family History Medical HistoryRelationNameCommentsADHDBrotherAsthmaBrotherTuberculosisFather DementiaMaternal GrandfatherCancerMotherbili ductDeep Vein ThrombosisMotherOther Motherliver disease,A fibOtherOtherNo family h/o ovarian or breast cancer. RelationNameStatusCommentsBrotherAliveFatherMaternal GrandfatherDeceasedMaternal GrandmotherAliveMotherDeceasedOtherOther Social History Tobacco UseTypesPacks/DayYears UsedDateSmoking Tobacco: NeverSmokeless Tobacco: Never Tobacco Cessation:Counseling Given: Not Answered Alcohol UseStandard Drinks/WeekCommentsNot Currently0 (1 standard drink = 0.6 oz pure alcohol)[facility]rely[facility] UtilitiesAnswerDate RecordedIn the past 12 months has the electric, gas, oil, or water company threatened to shut off services in your home?No07/03/2024Overall Financial Resource Strain (CARDIA)AnswerDate Recorded How hard is it for you to pay for the very basics like food, housing, medical care, and heating?Not hard at all06/23/2023HQ-2AnswerDate RecordedPHQ-9 Total Rbjzf992Hunger Vital SignAnswerDate RecordedWithin the past 12 months, you worried that your food would run out before you got the money to buymore. Never true07/03/2024Within the past 12 months, the food you bought just didn't last and you didn't have money to get more.Never true07/03/2024PRAPARE - TransportationAnswerDate RecordedIn the past 12 months, has lack of transportation kept you from medical appointments or from getting medications?No 07/03/2024In the past 12 months, has lack of transportation kept you from meetings, work, or from getting things needed for daily living?No07/03/2024 Housing Stability Vital SignAnswerDate RecordedUnable to Pay for Housing in the Last YearNot on file06/23/2023Number of Places Lived in the Last YearNot on file 06/23/2023In the last 12 months, was there a time when you did not have a steady place to sleep or slept in ashelter (including now)?No06/23/2023Housing Stability Vital SignAnswerDate RecordedIn the last 12 months, was there a time when you were not able to pay the mortgage or rent on time?No07/03/2024In the past 12 months, how many times have you moved where you were living? At any time in the past 12 months, were you homeless or living in a residential (including now)?07/03/2024Food InsecurityAnswerDate RecordedWithin the past 12 months, you worried that your food would run out before you got the money to buy more.Within the past 12 months, the food you bought just didn't last and you didn't have money to get more.CommentsNoSex and Gender InformationValueDate RecordedSex Assigned at BirthNot on fileLegal Sex Wqloex8305/14/2012 2:55 PM ESTGender IdentityNot on fileSexual OrientationNot on file Last Filed Vital Signs Vital SignReadingTime TakenCommentsBlood Gflldfri348/7804 3:21 PM EDT Qxdjv794011/30/2014 10:15 PM EDTTemperature--Respiratory Mcqs1083 10:15 PM EDTOxygen Txfjqwydfz62%11/30/2014 10:15 PM EDTInhaled Oxygen Concentration-- Ktpaee535.5 kg (237 lb)07/03/2024 3:21 PM RGQObcrai728.9 cm (5' 1 )07/03/2024 3:21 PM EDTBody Mass Index44.78007/03/2024 3:21 PM EDT Plan of Treatment DateTypeDepartmentCare Team (Latest Contact Info)Wvmlehrctuz36/02/2026 3:45 PM EDTOffice Visit [facility] Part of [address] [place] [address] Jennifer Yanes APRN - [address] [place] [address] yearlyHealth MaintenanceDue DateLast DoneCommentsVaricella vaccine (1 of 2 - 13+ 2-dose series)1994Hepatitis C nbgweg4112/06/1999Hepatitis B vaccine (1 of 3 - 19+ 3-dose series)2000Diabetes awmtio6212/05/2016DTaP/Tdap/Td vaccine (2 - Td or Tdap)Lipids2021HPV (without or with Pap) Flu vaccine (#1)11/02/2024OVID-19 Vaccine ( season)2024ervical cancer fvgrie8006/16/2025Pap smear/, 09/20/2019, 02/21/2017Depression Tujpgo61/04/2024, 07/03/2024reast cancer jclyad96, 04/12/2024, 03/30/2024, Additional history existsHIV jwfnioEsktsrbrr66/01/2008Depression MswjzjzatnRzvmtxsrsikm15/01/2025, 07/03/2024HPV vaccine (No Doses Required)CompletedHepatitis A vaccineAged OutNo longer eligible based on patient's age to complete this topicHib vaccineAged Out No longer eligible based on patient's age to complete this topicMeningococcal (ACWY) vaccineAged OutNo longer eligible based on patient's age to complete this topicMeningococcal B vaccineAged OutNo longer eligible based on patient's age to complete this topicPneumococcal 0-49 years VaccineAged OutNo longer eligible based on patient's age to complete this topicPolio vaccineAged OutNo longer eligible based on patient's age to complete this topic Procedures Procedure NamePriorityDate/TimeAssociated DiagnosisCommentsMAM DEB DIGITAL DIAGNOSTIC UNILATERAL DEQNHNggvrsz70/27/2024 10:36 AM EST Abnormal screening mammogram DIRECT CHILL CASTING OPERATOR LUOCQTSSBgjrefq49/15/2023 8:52 AM EDT HUMAN PAPILLOMAVIRUS (HPV) DNA PROBE THIN PREP HIGH JFNSEsogszt63/20/2017 10:41 AM EST from Last 3 Months or Most Recently Relevant to Health Maintenance Results * (ABNORMAL) [facility] DEB DIGITAL DIAGNOSTIC UNILATERAL RIGHT (03/30/2024 10:36 AM EST)Anatomical RegionLateralityModalityBreastRightMammographySpecimen (Source) Anatomical Location / LateralityCollection Method / VolumeCollection Time Received Time03/30/2024 11:03 AM EST Impressions 03/30/2024 11:06 AM EST [...] patient at the time of service. A account development representative from the radiology department will be contacting your office and assisting the patient in getting appropriate follow-up. Performing Facility: [place] [address] Narrative 03/30/2024 11:06 AM EST EXAMINATION: DIAGNOSTIC DIGITAL RIGHT BREAST MAMMOGRAM WITH TOMOSYNTHESIS; TARGETED ULTRASOUND OF THE RIGHT BREAST; TARGETED ULTRASOUND OF THE LEFT BREAST, 03/30/2024 10:36 am TECHNIQUE: Diagnostic mammography of the right breast was performed with tomosynthesis. 2D standard and 3D tomosynthesis combination imaging performed through the right breast. ??Computer aided detection was utilized in the interpretation [...] defined margins and overall wider than tall. Authorizing ProviderResult TypeResult StatusSusan Albertina Yanes COLLAR TACKER - [facility] MAMMOGRAPHY ORDERABLESFinal Result * DIRECT CHILL CASTING OPERATOR Cytology (06/16/2022 8:52 AM EDT)ComponentValueRef RangeTest Method Analysis TimePerformed AtPathologist SignatureCytology ReportINTERPRETATION Cervical material, (ThinPrep vial, Imaging-assisted review): Specimen Adequacy: ? Satisfactory for evaluation. ? - Endocervical/transformation zone component present. Descriptive Diagnosis: ? Negative for intraepithelial lesion or malignancy. ?? Culinary Arts Teacher: ?? HERMELINDO ALLISON(ASCP) Electronically Signed Out 06/24/2022 Source: A: Cervical material, (ThinPrep vial, Imaging-assisted review) Clinical History Z12.4 Encounter for screening for malignant neoplasm of cervix High Risk HPV DNA testing is requested if the diagnosis is ASC-US LMP: ??05/28/2022 GYNECOLOGIC CYTOLOGY REPORT Patient Name: ROGE SPRINGER [facility] Rec: [id number] Path Number: [id number] [facility] ??LABORATORIES CONSULTING PATHOLOGISTS [facility] ANATOMIC PATHOLOGY [address] [place] [address]. ??[place] [id number] [facility]ITALSpecimen (Source)Anatomical Location / LateralityCollection Method / VolumeCollection TimeReceived TimeCERVICAL OGDXEVSF43/15/2023 8:52 AM EDT06/17/2022 8:52 AM EDT Narrative Authorizing ProviderResult TypeResult StatusSusan Albertina Yanes COLLAR TACKER - CNM PATHOLOGY/CYTOLOGY ORDERABLESFinal ResultPerforming OrganizationAddress City/State/ZIP CodePhone Number [facility] [address] [place], [place] [address] [phone] [phone] * Human papillomavirus (HPV) DNA probe thin prep high risk (02/21/2017 10:41 AM EST)ComponentValueRef RangeTest MethodAnalysis TimePerformed AtPathologist SignatureHPV SOURCECERVICAL NQBMLCUJ09/21/2017 10:42 AM [facility] HPV Sample.THIN PREP02/22/2017 10:42 AM [facility] LABORATORIESHPV, Genotype 16 Not RhnmnzcpOALWBS71/22/2017 2:54 PM ESTPontaba LABORATORIESHPV, Genotype 18Not VpgvlpprXEEZHY51/22/2017 2:54 PM ESTPontaba LABORATORIESHPV, High Risk OtherNot MywtgueqMDUUDG84/22/2017 2:54 PM [facility], Interpretation 02/23/2017 2:54 PM [facility]ITALComment: This test amplifies and detects DNA of 14 high-risk HPV types associated with cervical cancer and its precursor lesions (HPV types 16,18, 31, 33, 35, 39, 45, 51, 52, 56, 58, 59, 66, and 68). ? Sensitivity may be affected by specimen collection methods, stage of infection, and the presence of interfering substances. Results should be interpreted in conjunction with other available laboratory and clinical data. A negative high-risk HPV result does not exclude the possibility of future cytologic HSIL or underlying CIN2-3 or cancer. ? This test is intended for medical purposes only and is not valid for the evaluation of suspected sexual abuse or for other forensic purposes. Performed at [address] [address] ([phone] Specimen (Source)Anatomical Location / LateralityCollection Method / Volume Collection TimeReceived Time02/21/2017 10:41 AM EST02/22/2017 10:41 AM EST Narrative Authorizing ProviderResult TypeResult StatusSusan Albertina Yanes COLLAR TACKER - CNM HEMATOLOGY ORDERABLESFinal ResultPerforming OrganizationAddressCity/State/ZIP CodePhone Number [facility] [address] [place] [address], [facility] [phone] [address] [phone] from Last 3 Months or Most Recently Relevant to Health Maintenance Insurance Care Teams Team MemberRelationshipSpecialtyStart DateEnd Date House, Renaldo Perez, [address] [place] [address] PCP - General05/22/12
== END 2025-01-22 20:03 | disposition home or self-care (01) ==
LOC: SLEEP 20:03
PROVIDERS: PCP Nurse Practitioner Family; Visit Provider Nurse Practitioner Family
DX: G47.33 Obstructive sleep apnea (adult) (pediatric) (principal)
CPT/HCPCS: 95811

== ENCOUNTER 2025-03-21 08:08 | Outpatient (OUT) | payer OTHER, SELFPAY ==
--- OUTSIDE RECORDS SUMMARY | 2025-03-21 08:10 | XMS_ITS | Clinical Summary ---
Author Organization [employer] tem Address [id number] [address] [place] [address] Care Team Providers Care Resourcing Advisor Name Role Phone Kiley Meza Primary Care Provid er Allergies Active AllergyReactionsCriticalityNoted CuncMzbhwlaeLhucqrq93/29/2015 Medications MedicationSigDispense QuantityRefillsLast FilledStart DateEnd DateStatus levothyroxine (SYNTHROID, LEVOTHROID) 75 MCG tablet Take 1 tablet (75 mcg total) by mouth in the morning.04/23/2022ctive metFORMIN (GLUMETZA) 500 MG (MOD) 24 hr tablet Take 1 tablet (500 mg total) by mouth daily with breakfast.Active aspirin 81 mg chewable tablet Chew 1 tablet (81 mg total) and swallow in the morning. 20 tablet 07/12/2022ctive atomoxetine (STRATTERA) 60 mg capsule Take 1 capsule (60 mg total) by mouth in the morning.Active Active Problems No known active problems Family History Medical HistoryRelationNameCommentsAtrial fibrillationMotherRelationNameStatus CommentsMotherAlive Social History Tobacco UseTypesPacks/DayYears UsedDateSmoking Tobacco: NeverSmokeless Tobacco: Never Tobacco Cessation:Counseling Given: Not Answered Alcohol UseStandard Drinks/WeekCommentsNot Currently0 (1 standard drink = 0.6 oz pure alcohol)ChildcareAnswerDate TrwkmrpyVoeaaifnePrmakdg31/12/2019Employment AnswerDate QosqriziUqzoyliyhxOcogufj27/12/2019Hunger ScreeningAnswerDate RecordedWithin the past 12 months we worried whether our food would run out before we got money to buy more.Never True10/07/2022Within the past 12 months the food we bought just didn't last and we didn't have money to get more.Never True3Purpose - LifeAnswerDate RecordedPurpose and direction in life Ebylilx43/11/2021CommentsUnknownSex and Gender InformationValueDate RecordedSex Assigned at BirthNot on fileLegal LmoMqntrl32/06/2015 11:32 AM EDT Gender IdentityNot on fileSexual OrientationNot on file Last Filed Vital Signs Vital SignReadingTime TakenCommentsBlood Azueygdn041/8210/07/2022 2:06 PM EDT Epqsl856710/07/2022 2:06 PM WBNHeveipwvrsu43.7 ??C (99.9 ??F)07/12/2022 4:00 PM EDTRespiratory Pbtl324607/12/2022 7:46 PM EDTOxygen Ullgiwmqnb85%10/07/2022 2:06 PM EDTInhaled Oxygen Concentration--Aletkx29.3 kg (219 lb)10/07/2022 2:06 PM EDT Zhbmvr481.6 cm (5' 4 )10/07/2022 2:06 PM EDTBody Mass Index37.59010/07/2022 2:06 PM EDT Plan of Treatment Health MaintenanceDue DateLast DoneCommentsDepression Fzshqjgsj07/03/1994Tobacco Kdfluryan38/03/1994DTaP,Tdap and Td Vaccines (2 - Td or Tdap)02/21/2017 02/21/2007dult BMI Kkzuwepgj19/09/2022Influenza Eaipsim7712/03/2024Pap Smear06/16/198012/ Medical Devices Not on file Insurance Care Teams Team MemberRelationshipSpecialtyStart DateEnd Date Kiley Meza APRN-NP [address] [place] [address] PCP - GeneralNurse Practitioner04/28/23
--- OUTSIDE RECORDS SUMMARY | 2025-03-21 08:10 | XMS_ITS | Clinical Summary ---
Author Organization [facility] Address [address] [facility], [address] [place] [address] Care Team Providers Care Biological Science Aide Name Role Phone Renaldo Cadena DO Primary Care Provider [phone] Allergies Active AllergyReactionsCriticalityNoted GkbbCubyiqexRfpsgxh17/29/2015 Medications MedicationSigDispense QuantityRefillsLast FilledStart DateEnd DateStatus Levothyroxine [...] 2020 with yearly No known active problems Encounters DateTypeDepartmentCare JvlzRkhijuggaur90/03/2025Results Follow-Up [facility] Obstetrics and Gynecology [address] [place] [address] [place] [address] Jennifer Yanes, PHARMACOLOGY ASSOCIATE - [employer] from Last 3 Months Immunizations ImmunizationAdministration DatesNext DueTDaP, ADACEL (age 10y-64y), BOOSTRIX (age 10y+), IM, 0.5mL02/21/2007 Family History Medical HistoryRelationNameCommentsADHDBrotherAsthmaBrotherTuberculosisFather DementiaMaternal GrandfatherCancerMotherbili ductDeep Vein ThrombosisMotherOther Motherliver disease,A fibOtherOtherNo family h/o ovarian or breast cancer. RelationNameStatusCommentsBrotherAliveFatherMaternal GrandfatherDeceasedMaternal GrandmotherAliveMotherDeceasedOtherOther Social History Tobacco UseTypesPacks/DayYears UsedDateSmoking Tobacco: NeverSmokeless Tobacco: Never Tobacco Cessation:Counseling Given: Not Answered Alcohol UseStandard Drinks/WeekCommentsNot Currently0 (1 standard drink = 0.6 oz pure alcohol)rarelyAHC UtilitiesAnswerDate RecordedIn the past 12 months has the electric, gas, oil, or water [employer] threatened to shut off services in your home?No07/03/2024Overall Financial Resource Strain (CARDIA)AnswerDate Recorded How hard is it for you to pay for the very basics like food, housing, medical care, and heating?Not hard at all06/23/2023HQ-2AnswerDate RecordedPHQ-9 Total Qpumd687Hunger Vital SignAnswerDate RecordedWithin the past 12 months, [...] to pay the mortgage or rent on time?07/03/2024In the past 12 months, how many times have you moved where you were living? At any time in the past 12 months, were you homeless or living in a group home (including now)?07/03/2024Food InsecurityAnswerDate RecordedWithin the past 12 months, you worried that your food would run out before you got the money to buy more.Within the past 12 months, the food you bought just didn't last and you didn't have money to get more.CommentsNoSex and Gender InformationValueDate RecordedSex Assigned at BirthNot on fileLegal Sex Uzpbpw5605/14/2012 2:55 PM ESTGender IdentityNot on fileSexual OrientationNot on file Last Filed Vital Signs Vital SignReadingTime TakenCommentsBlood Kxverrba907/7804 3:21 PM EDT Cfcxp407611/30/2014 10:15 PM EDTTemperature--Respiratory Umwr982811/30/2014 10:15 PM EDTOxygen Jqcdlogmwo07%11/30/2014 10:15 PM EDTInhaled Oxygen Concentration-- Oihcaq902.5 kg (237 lb)07/03/2024 3:21 PM IWNIfhnsa764.9 cm (5' 1 )07/03/2024 3:21 PM EDTBody Mass Index44.78007/03/2024 3:21 PM EDT Plan of Treatment DateTypeDepartmentCare Team (Latest Contact Info)Agoeapkfoyu92/02/2026 3:45 PM EDTOffice Visit [facility]OLOGY Part of [address] [place] [address] Jennifer Yanes, LETTY - [address] [place] [address] yearlyHealth MaintenanceDue DateLast DoneCommentsVaricella vaccine (1 of 2 - 13+ 2-dose series)1994Hepatitis C xthonp9712/06/1999Hepatitis B vaccine (1 of 3 - 19+ 3-dose series)2000Diabetes cvgexv3012/05/2016DTaP/Tdap/Td vaccine (2 - Td or Tdap)Lipids2021HPV (without or with Pap) Flu vaccine (#1)11/02/2024OVID-19 Vaccine ( season)2024ervical cancer zyunut7806/16/2025Pap smear/, 09/20/2019, 02/21/2017Depression Nooeze41/04/2024, 07/03/2024reast cancer tddvva96/, 04/12/2024, 03/30/2024, Additional history existsHIV pkxsvcGydbdsznt69/01/2008Depression XfjerkqdgqHjvohzyoeohx59/01/2025, 07/03/2024HPV vaccine (No Doses Required)CompletedHepatitis A vaccineAged [...] Procedure NamePriorityDate/TimeAssociated DiagnosisCommentsMAM DEB DIGITAL DIAGNOSTIC UNILATERAL ZTEPVSdhtmlr63/27/2024 10:36 AM EST Abnormal screening mammogram [facility] GPLEEXAQDoybwrd09/15/2023 8:52 AM EDT HUMAN PAPILLOMAVIRUS (HPV) DNA PROBE THIN PREP HIGH DNPKAifiqjm24/20/2017 10:41 AM EST from Last 3 Months [...] patient at the time of service. A service center representative from the radiology department will be contacting your office and assisting the patient in getting appropriate follow-up. Performing Facility: [place] [address] Narrative 03/30/2024 11:06 AM EST EXAMINATION: DIAGNOSTIC [...] tall. Authorizing ProviderResult TypeResult StatusSusan Albertina Yanes APRN - CNMIMG MAMMOGRAPHY ORDERABLESFinal Result * [facility] Cytology (06/16/2022 8:52 AM EDT)ComponentValueRef RangeTest Method Analysis TimePerformed AtPathologist SignatureCytology ReportINTERPRETATION Cervical material, (ThinPrep vial, Imaging-assisted review): Specimen Adequacy: ? Satisfactory for evaluation. ? - Endocervical/transformation zone component present. Descriptive Diagnosis: ? Negative for intraepithelial lesion or malignancy. ?? Steel Worker: ?? HERMELINDO ALLISON(ASCP) Electronically Signed Out /06/24/2022 Source: A: Cervical material, (ThinPrep vial, Imaging-assisted review) Clinical History Z12.4 Encounter for screening for malignant neoplasm of cervix High Risk HPV DNA testing is requested if the diagnosis is ASC-US LMP: ??05/28/2022 GYNECOLOGIC CYTOLOGY REPORT Patient Name: ROGE SPRINGER [facility] Rec: [id number] Path Number: [id number] [facility] ??LABORATORIES CONSULTING PATHOLOGISTS [facility] EMERGENCY DEPARTMENT ANATOMIC PATHOLOGY [address] [place] [address]. ??[place] [id number] [facility] Touch BionicsSpecimen (Source)Anatomical Location / LateralityCollection Method / VolumeCollection TimeReceived TimeCERVICAL DWJANEAH89/15/2023 8:52 AM EDT06/17/2022 8:52 AM EDT Narrative Authorizing ProviderResult TypeResult StatusSujasmeet Yanes PHARMACOLOGY ASSOCIATE - CNM PATHOLOGY/CYTOLOGY ORDERABLESFinal ResultPerforming OrganizationAddress City/State/ZIP CodePhone Number [facility] [address] [place], [place] [address] [phone] [employer] [address] [place] [address] * Human papillomavirus (HPV) DNA probe thin prep high risk (02/21/2017 10:41 AM EST)ComponentValueRef RangeTest MethodAnalysis TimePerformed AtPathologist SignatureHPV SOURCECERVICAL CVOASBPS64/21/2017 10:42 AM [employer] HPV Sample.THIN PREP02/22/2017 10:42 AM Proactive ComfortHPV, Genotype 16 Not GvkqfaakBAHJCF20/22/2017 2:54 PM ESTMERCY LABORATORIESHPV, Genotype 18Not HawmjbggKRGCXZ55/22/2017 2:54 PM [facility]ATORIESHPV, High Risk OtherNot GqjbfhsqPRGBLJ19/22/2017 2:54 PM [facility] LABORATORIESHPV, Interpretation 02/23/2017 2:54 PM ESTMERCY LABORATORIESComment: This test amplifies and detects DNA of [...] or for other forensic purposes. Performed at [address] [address] ([phone] Specimen (Source)Anatomical Location / LateralityCollection Method / Volume Collection TimeReceived Time02/21/2017 10:41 AM EST02/22/2017 10:41 AM EST Narrative Authorizing ProviderResult TypeResult StatusSusan Albertina Yanes APRN - CNM HEMATOLOGY ORDERABLESFinal ResultPerforming OrganizationAddressCity/State/ZIP CodePhone Number [facility] [address] [place], [place] [address] [phone] [address] [phone] from Last 3 Months or Most Recently Relevant to Health Maintenance Insurance Care Teams Team MemberRelationshipSpecialtyStart DateEnd Date House, Renaldo Perez, [address] [place] [address] [facility] - General05/22/12
--- OUTSIDE RECORDS SUMMARY | 2025-03-21 08:11 | XMS_ITS | Clinical Summary ---
Author Organization [facility] Address [address] [place] [address] Care Team Providers Care Starch Cooker Name Role Phone Peggy Hubbard Unavailable Veronica More DDS Unavailable [phone] Allergies Active AllergyReactionsCriticalityNoted KvkeBwsrcxzsUqaekkmBihq74/29/2015 Medications MedicationSigDispense QuantityRefillsLast FilledStart DateEnd DateStatus levothyroxine 75 MCG Tab tablet Take 1 tablet by mouth daily. 30 tablet 11:55 AM EST04/05/2017Active Additional Information Patient taking differently: 50 mcgOral DAILY, Reported on 04/17/2024 Atomoxetine 60 MG capsule Take 1 capsule by mouth.Active Berberine Chloride (BERBERINE HCI PO) Take by mouth.Active escitalopram (Lexapro) 5 MG tablet Take 2 tablets by mouth daily.Active chlorhexidine 0.12 % Solution oral solution Swish and spit 15 mL 2 times daily for 7 days. Swish around in the mouth for 30 seconds, then spit out. Chlorhexidine oral rinse should be used after you have brushed and flossed your teeth. Do not eat or drink for several hours after using the oral rinse. 210 mL 5Active busPIRone 5 MG tablet Take 1 tablet by mouth 2 times daily.Active Active Problems ProblemNoted DateDiagnosed CfyzYhlxnp64/21/2025 Encounters DateTypeDepartmentCare WvrfHtlywtmmqmb61/13/2025 1:00 PM ESTOffice Visit [facility] [address] [phone] Peggy Hubbard, Veronica Glover, DDS Dental caries on pit and fissure surface penetrating into dentin (Primary Dx) from Last 3 Months Family History Medical HistoryRelationNameCommentsDementiaMaternal GrandfatherParkinsonMaternal GrandfatherSkin CancerMaternal GrandmothermelanomaCancerMotherdiagnosed 2016, passed in 2022 Bile duct- cholingiocarcinomaBreast CancerNeg HxColorectal Cancer Neg HxOvarian CancerNeg HxUterine CancerNeg HxRelationNameStatusCommentsMaternal GrandfatherMaternal GrandmotherMotherDeceased Social History Tobacco UseTypesPacks/DayYears UsedDateSmoking Tobacco: NeverPassive Smoke Exposure: PastSmokeless Tobacco: Never Tobacco Cessation:Counseling Given: Not Answered Alcohol UseStandard Drinks/WeekCommentsYes1 (1 standard drink = 0.6 oz pure alcohol)once a monthOverall Financial Resource Strain (CARDIA)AnswerDate RecordedHow hard is it for you to pay for the very basics like food, housing, medical care, and heating?Not hard at all04/17/2024DepressionAnswerDate Recorded PHQ-9 Total Score (Interpretation of Total Score 1-4 = Minimal depression; 5-9 = Mild depression; 10-14 = Moderate depression; 15-19 = Moderately severe depression)CommentsUnknownSex and Gender InformationValueDate RecordedSex Assigned at BirthNot on fileLegal GijVazwkf22/30/2024 1:25 PM EST Gender IdentityNot on fileSexual OrientationNot on fileOccupationIndustryJob Start DateJob End Date[facility] ManagerNot on fileNot on fileNot on file Last Filed Vital Signs Vital SignReadingTime TakenCommentsBlood Cnavokaq542/9702/14/2025 1:08 PM EST Fuctk282802/14/2025 1:08 PM XIYMsfrdyzfttl10.8 ??C (98.2 ??F)04/17/2024 9:33 AM ESTRespiratory Xwne780304/16/2024 1:08 PM ESTOxygen Saturation--Inhaled Oxygen Concentration--Pzkvie874.8 kg (231 lb)10/22/2024 1:26 PM BLXRekptm328.6 cm (5' 4 )10/22/2024 1:26 PM EDTBody Mass Index39.65010/22/2024 1:26 PM EDT Plan of Treatment Health MaintenanceDue DateLast DoneCommentsHEPATITIS C VIRUS PQSDYSBSG21/03/1982 TSH1981HIV SCREENING HBYMWOPUHV24/03/1997HEP B VACCINE (1 of 3 - 19+ 3- dose series)2000CERVICAL CANCER SCREENING KAJAHSXWYL64/03/2003HPV VACCINE (1 - 3-dose SCDM series)12/05/20088643ALDIIJW38LIPID SCREENING 2021OVID-19 VACCINE (2024- season)2024INFLUENZA VACCINE (#1) 2024Dental Jlcnzgedqwr11/26/202506/Dental Oral Exam04/15/2025 10/12/2024MAMMOGRAM SCREENING OTHGRVMPBO29/14/30014104/17/2024, 03/15/2024, 03/15/2024, Additional history existsTDAP (ADULT)Wcixgvzwo12/20/2007PNEUMOCOCCAL VACCINE SERIESAged OutNo longer eligible based on patient's age to complete this topic Procedures Procedure NamePriorityDate/TimeAssociated DiagnosisComments3 MO RESIN-BASED COMPOSITE - 2 SURFACES, KJXXMKWMIKuknebl12/13/2025 1:00 PM EST Dental caries on pit and fissure surface penetrating into dentin COMPREHENSIVE ORAL EVAL - NEW/EST IETWBHVOhnmlbi64/11/2025 8:45 AM EDT Encounter for dental examination PROPHYLAXIS - DAMKMEyuuzrn18/25/2025 12:00 AM EDTMAMMO DIAGNOSTIC WITH DEB EOPQBQCWHKaedvpd25/14/2025 11:04 AM EST Abnormal finding on breast imaging from Last 3 Months or Most Recently Relevant to Health Maintenance Results * MAMMO DIAGNOSTIC WITH DEB BILATERAL (04/17/2024 11:04 AM EST)Anatomical RegionLateralityModalitybreastBilateralMammographySpecimen (Source)Anatomical Location / LateralityCollection Method / VolumeCollection TimeReceived Time 04/17/2024 12:42 PM EST Impressions 04/17/2024 12:46 PM EST [...] patient may continue routine annual screening. BI-RADS: ??2: Benign Recommendation: ??Routine mammography. Recommendation Laterality: ??Bilateral MQSA Facility: ??[facility], [address] [place] [address], Narrative 04/17/2024 12:46 PM EST EXAM: MAMMO DIAGNOSTIC WITH DEB BILATERAL, US BREAST LIMITED BILATERAL, 04/17/2024 11:04 AM (accession [id number]), 04/17/2024 12:39 PM (accession [id number]) CLINICAL INDICATIONS AND HISTORY: per second opinion. [...] detection was utilized. MAMMOGRAM FINDINGS: Breast Density: ??There are scattered areas of fibroglandular density. There are no suspicious findings within the right breast. Ultrasound of the areas seen previously is again performed. Focal asymmetric tissue seen in the superior central left breast middle depth as well as the central lateral left breast posterior depth. Ultrasound was performed. ?? ULTRASOUND TECHNIQUE: Multiple real-time julien-scale images of [...] BREAST LIMITED BILATERAL, 04/17/2024 11:04 AM (accession [id number]), 04/17/2024 12:39 PM(accession [id number]) CLINICAL INDICATIONS AND HISTORY: per second opinion. [...] is the finding on outside ultrasound at theright breast 8:00 zone 3 position. This consists [...] Routine mammography. Recommendation Laterality: Bilateral MQSA Facility: [facility], [address] [place] [address] Authorizing ProviderResult TypeResult StatusSadagmar Lopez MANAGER PMO-CNPBREAST IMAGINGFinal Result from Last 3 Months or Most Recently Relevant to Health Maintenance Insurance Care Teams Team MemberRelationshipSpecialtyStart DateEnd Date Peggy Hubbard [address] [phone] Dental Student09/26/24 Veronica More DDS [address] [phone] Clinic DirectorDentistry09/26/24
--- OUTSIDE RECORDS SUMMARY | 2025-03-21 08:11 | XMS_ITS | Clinical Summary ---
Author Organization [facility] Address [address] [place] [address] Care Team Providers Care Filter Changer Name Role Phone Kiley Meza NP Primary Care Provider Social History Tobacco UseTypesPacks/DayYears UsedDateSmoking Tobacco: Never Assessed CommentsUnknownSex and Gender InformationValueDate RecordedSex Assigned at Not on fileLegal UnqYymhsu93/06/2024 1:37 PM EDTGender IdentityNot on fileSexual OrientationNot on file Plan of Treatment Not on file Insurance Care Teams Team MemberRelationshipSpecialtyStart DateEnd Date Kiley Meza NP [address] [place] [address] [place] [address] PCP - GeneralFamily Medicine12/09/23
== END 2025-03-21 08:09 | disposition home or self-care (01) ==
LOC: FHNEUROLOG 08:08
PROVIDERS: PCP Nurse Practitioner Family; Visit Provider Psychiatry & Neurology Neurology
DX: G47.33 Obstructive sleep apnea (adult) (pediatric) (principal)
CPT/HCPCS: G0463